=== PATIENT | male | born 1970 | race Caucasian/White ===

== ENCOUNTER → 2020-11-20 16:57 | Outpatient (CLI) | payer MEDICARE, MEDICAID, SELFPAY ==
--- NOTE | 2020-11-20 17:31 | CT_ITS ---
STUDY: RIGHT LOWER EXTREMITY CT SCAN REASON FOR EXAM: Male, 50 years old. Osteoarthritis. Presurgical planning. RADIATION DOSAGE (If Supplied By Facility): CTDIvol = ( 14.07 ) mGy, DLP = ( 1099.86 ) mGycm. Individualized dose optimization techniques were used for this CT.? TECHNIQUE: Axial multidetector CT scan of the right lower extremity. Coronal and sagittal reformatted images. COMPARISON: None. FINDINGS: Severe bilateral hip osteoarthropathy (coronal image 91 series 607) with lateralization of the femoral heads, extensive subcortical cyst formation/sclerosis, extensive osteophyte production and severe joint space narrowing. No acute fracture line. No acute dislocation. Chronic bilateral femoral head flattening. Mild pubic symphysis arthrosis. Mild bilateral knee osteoarthritis predominating medially. Prostate calcifications. Normal visualized bowel. Normal visualized urinary bladder. No acute muscle abnormality. Small fat-containing left inguinal hernia. Small bilateral hip joint effusions. CT/Extremity Lower without Contra IMPRESSION: Severe bilateral hip osteoarthritis Mild bilateral knee osteoarthritis Small hip joint effusions Electronically Signed: Noel Sanchez DO at 11:10 EDT Tel , Service support ,
--- NOTE | 2020-11-20 17:33 | CT_ITS ---
STUDY: CT SCAN LEFT REASON FOR EXAM: Male, 50 years old. [employer] [facility] RADIATION DOSAGE (If Supplied By Facility): CTDIvol = ( 14.07 ) mGy, DLP = ( 1099.86 ) mGycm. Individualized dose optimization techniques were used for this CT.? TECHNIQUE: Multiple axial tomographic images of the left hip joint were obtained without intravenous contrast administration. Coronal and sagittal reconstruction was obtained as well. COMPARISON: None. FINDINGS: Marked degree of osteoarthritis and joint space narrowing of the left hip joint with evidence of subchondral cysts in the femoral head as well as the acetabulum. Degenerative spur formation along the acetabulum. Degenerative changes of the symphysis pubis. CT/Extremity Lower without Contra IMPRESSION: Marked degree of osteoarthritis with joint space narrowing and subchondral geodes of the acetabulum and the femoral head with degenerative spur formation. Electronically Signed: Cosme Helm MD at 13:19 EDT , Service support ,
== END ==
PROVIDERS: PCP Family Medicine; Referring Provider Specialist; Visit Provider Specialist
DX: Z01.810 Encounter for preprocedural cardiovascular examination (principal); M16.6 Other bilateral secondary osteoarthritis of hip
CPT/HCPCS: 36415; 73700; 80048; 85025; 87081

== ENCOUNTER 2020-12-03 12:49 | Observation (INO) | payer MEDICARE, MEDICAID, SELFPAY ==
[2020-11-20 17:32] LABS: Absolute Lymphocyte Count 1.96 X10^3/uL (0.83-4.51); Absolute Neutrophil Count 5.2 X10^3/uL (2.0-7.7); Basophil# 0.05 X10^3/uL; Basophil% 0.6 % (0-1); Eosinophil# 0.13 X10^3/uL; Eosinophils% 1.6 % (0-5); Hematocrit 47.1 % (40-54); Hemoglobin 15.6 g/dL (13.0-16.5); Lymphocyte # 1.96 X10^3/ul (0.83-4.51); Lymphocyte % 24.6 % (19-41); Mean Corp Hgb Conc 33.1 g/dL (32-36); Mean Corpuscular Hgb 29.3 pg (27.0-32.0); Mean Corpuscular Volume 88.4 fL (80-94); Mean Platelet Vol. 9.4 fl (6.2-12.0); Monocyte# 0.57 X10^3/uL; Monocyte% 7.2 % (0-10); NRBC Flagged by Analyzer 0 % (0-5); Neutrophil # 5.23 X10^3/uL (2.7-7.7); Neutrophil % 65.7 % (47-70); Platelet Count 277 K/mm3 (150-450); RBC Distribution Width CV 12.7 % (11.6-14.6); Red Blood Count 5.33 M/mm3 (4.6-6.2)
[2020-11-20 17:58] LABS: Anion Gap 6 (5-15); BUN 18 mg/dL (7-18); BUN/Creat Ratio 16.1 RATIO (10-20); Calcium,Total 9.1 mg/dL (8.5-10.1); Chloride 105 mmol/L (98-107); Creatinine, Serum 1.12 mg/dL (0.70-1.30); EST Glomerular Filtration Rate 74 mL/min (>60); Est Glom Filt Rate - Afr Amer 89 mL/min (>60); Glucose 98 mg/dL (74-106); Potassium 3.8 mmol/L (3.5-5.1); Sodium Level 138 mmol/L (136-145)
--- NOTE | 2020-11-21 12:38 | PCM.HP.BLA ---
History and Physical History and Physical Patient Name: Han Rojo : 1970 From: CARLOS MEJÍA PA-C DATE OF SURGERY and SCHEDULED PROCEDURE: 1. Right posterior total hip arthroplasty: December 03, 2020 2. Left posterior total hip arthroplasty: December 17, 2020 HISTORY OF PRESENT ILLNESS: Preoperative history and physical exam was performed on November 20, 2020. This is a 50-year-old male who has been having ongoing pain in bilateral hips for nearly 10 years. Pain is progressively become worse over the past 1 year. Patient does report having hip issues as a child. He has medical history pertinent for Aperts Syndrome. Patient's pain can reach as high as an 8/10 with activities. Pain is intermittent. Pain is increased with going up and down stairs and walking. Patient has bilateral groin pain. Patient has had severe hip flexion contractures and walks in a significantly forward flexed position. Currently using a walker. He has difficulty with activities of daily living including housework and bathing/showering. Patient has attempted conservative measures including rest, ice, heat, elevation with minimal relief. Patient has had corticosteroid injections into the trochanteric bursa with minimal relief. He has also complained of bilateral knee pain. He has attempted oral medications including nonsteroidal anti-inflammatories with minimal relief. He has been through physical therapy and home exercises with minimal relief. Patient denies previous surgery on bilateral hips. He denies any recent chest pain, shortness of breath, fevers chills or recent infections. We are obtaining surgical clearance from the primary care physician Dr. Sommer. After failing conservative measures and discussing all treatment options with Dr. Brennon Salazar, the patient does wish to proceed with a staged total hip arthroplasty first beginning with the right hip in 2 weeks later the left hip. REVIEW OF SYSTEMS: ROS: Const: Denies anorexia, change in appetite, fever, difficulty sleeping and weight change. CV: Denies chest pain, heart murmur, irregular heartbeat and peripheral vascular disease. Resp: Denies asthma, cough, pneumonia, sleep apnea, shortness of breath, tuberculosis and wheezing. GI: Denies constipation, diarrhea, heartburn, nausea, rectal itching, bloody stools and vomiting. : Denies incontinence. Musculo: Reports pain, trouble walking and weakness. Skin: Denies Raynaud's, history of shingles and tattoo. Neuro: Denies ambulatory dysfunction, dizziness, numbness/tingling and tremor. Psych: Denies anxiety, depression, insomnia, mental illness and stress. Nilesh/Lymph: Denies anemia, bleeding/bruising tendency and past transfusion. Reviewed, no changes. PAST MEDICAL HISTORY: Advance Care Plan: No Advance Directives Effective Date: 09/26/2020 PMH: Medical Problems: Apert syndrome, Osteoarthritis Accidents: None Surgical Hx: Plastic Surgery To Face And Jaw - (age 21 Years) Anesthesia Complications: None Assistive Devices: Glasses Reviewed, no changes. SOCIAL HISTORY: SH: Marital: Single.Occupation: Disabled.Work Status: Disabled.Hand Dominance: Right-handed. Personal Habits: Cigarette Use: Never Smoked Cigarettes.Smokeless Tobacco: Never Used Smokeless Tobacco.E-Cigarette Use: Never used.Alcohol: Occasionally.Drug Use: Denies Use.Enjoy Exercising: Exercises 1-3 x/month. Reviewed, no changes. VITALS: Ht: 67 Wt: 211lb Wt k.710 BMI: 33.0 BP: 144/100 Pulse: 68 Resp: 20 T: 97.3 T: 36.3C ALLERGIES: No Known Drug Allergy MEDICATIONS: Meloxicam 15 mg 1 by mouth every day PRE-OP EXAM: General appearance:NORMAL Other: Eyes: Conjunctivae and lids: NORMAL Pupils: ERR Ears, Nose, Mouth, and Throat: NORMAL Other: Inspection of lips, teeth and gums: NORMAL Other: Neck: Examination of neck: no masses noted. Respiratory: Assessment of respiratory effort: NORMAL Other: Auscultation of lungs: clear to auscultation no wheezes, rhonchi or rales. Cardiovascular: Auscultation of heart: regular rate and rhythm, no murmurs, gallops or rubs. PHYSICAL EXAMINATION: On exam patient currently walks with severe limping gait with severe trunk flexion secondary to the hip flexion contractures. He has bilateral hip flexion contractures. He has obligatory external rotation with the flexion of hips. There is approximately 40 flexion contracture of bilateral hips. Sensation intact to light touch. Neurovascularly intact. IMAGING STUDIES: Previous x-rays of bilateral hips reveal dysplastic acetabulum with oblong shaped femoral heads. The left femoral head has large bony cyst as well as the right femoral head. There is severe loss of joint space with [id number] arthrosis stage for severe osteoarthritis bilaterally. IMPRESSION: 1. Severe right hip osteoarthritis with flexion contracture 2. Severe left hip osteoarthritis with flexion contracture 3. Apert's syndrome PLAN: Dr. Brennon Salazar did discuss and review with the patient all treatment options including surgical versus nonsurgical options. Patient does wish to proceed with the above-stated procedure. Potential risks, benefits, and complications of the procedure were discussed in detail including but not limited to , infection, nerve and blood vessel damage, persistent pain, numbness, tingling, paresthesias, blood clot, pulmonary embolism, and requirement for possible further surgery. The patient expressed full understanding and has no further questions for the doctor. Patient does agree to proceed with the above-stated procedure and has signed the surgery consent form. We discussed the current risks associated with COVID 19. This does include the risk of exposure while in the hospital. Patient was reassured local hospitals have low infection rates and are taking all necessary precautions to avoid exposure to patients. In addition, we discussed strategies that can be used to help limit exposure including those that limit the patient's time in the hospital. Also using strategies to limit the patient's need for continued inpatient services after being discharged from the hospital. Patient was notified that we will need to comply with any screening or testing the hospital wishes to perform or that surgery may be delayed for any positive results. This dictation was created using voice recognition software. Phonetic and/or grammatical errors may exist. ___ I have re-examined the patient. There are no clinical changes since date of exam. ___ See progress notes for changes. ___ Dictated on admission Date: Time: Signature:
[2020-11-21 16:22] LABS: Albumin, Serum 3.9 g/dL (3.2-5.0)
--- NOTE | 2020-11-27 13:03 | EKG12_ITS ---
Test Reason : PRE OP Blood Pressure : / mmHG Vent. Rate : 086 BPM Atrial Rate : 086 BPM P-R Int : 130 ms QRS Dur : 142 ms QT Int : 394 ms P-R-T Axes : -19 -68 -03 degrees QTc Int : 471 ms Normal sinus rhythm Right bundle branch block Left anterior fascicular block Bifascicular block Abnormal ECG Confirmed by NOLBERTO PADILLA, BREN ([id number]), editor publications PATRICE NAGEL ([id number]) on 12/01/2020 10:53:35 AM Referred By: Brennon Salazar Confirmed By:MAYCOL ARVIZU MD
[2020-12-03] VITALS (13 sets, daily range): BP systolic 106–153; BP diastolic 58–108; PULSE 60–78; RESP 16–18; TEMP 35.6–37.2; O2SAT 93–100; BMI 30.2
[2020-12-03 11:00] LABS: Bedside Glucose 97 mg/dL (70-110)
[2020-12-03] MEDS: Celecoxib 200 MG Capsule 400 MG PO (11:09)
[2020-12-03] MEDS: Acetaminophen 500 MG Tablet 1000 MG PO ×2 (11:10→22:02)
[2020-12-03] MEDS: Gabapentin 600 MG Tablet PO (11:10)
[2020-12-03] MEDS: Lactated Ringers 1,000 ML 999 ML IV ×2 (11:47→15:30)
--- NOTE | 2020-12-03 12:30 | HIP_PTH ---
PATIENT: DESTINI COREY LOC: MS2 U#:[id number] AGE/SX: 50/M ROOM: [facility] [place] RE12/03/[address]: Dr. Sugar Galdamez MD : 1970 BED: 1 DIS: 12/04/2020 SPEC #: [id number] RECD: 12/03/20 15:51 STATUS: MARY REQ #: [id number] DUNCAN: 12/03/20 12:[address]: Brennon Salazar DEPT: SURGICAL PATHOLOGY RECD BY: Agatha Sandhu ENTERED: 12/04/20 07:28 SP TYPE: TOTAL HIP OTHR DR: MD Dr. Noel Munoz DO Dr. Paul Nielsen, MD Dr. Steven Widmer, MD Tissues: Hip, NOS Procedures: Decalcification bone/plaque Surgery Specimen Level IV Comments: @ Ordering doctor for DEC edited from to @ by JOSSELINE at 12/04/20 1317 @ Ordering doctor for SUIV edited from to @ by JOSSELINE at 12/04/20 131 @ Submitting doctor edited from to @ by JOSSELINE at 12/04/20 1317 HEADER OPERATION: ERAS, total hip replacement robotic arm assist, posterior PRE-OP DIAGNOSIS: Severe right hip osteoarthritis with flexion contracture, Apert?s syndrome TISSUE SUBMITTED: Right femoral head MICROSCOPIC DIAGNOSIS Right femoral head, total hip replacement/resection: Femoral head with severe degenerative osteoarthritic changes. AVIVA:flavio 12/10/2020 MICROSCOPIC DESCRIPTION Slides are reviewed. GROSS DESCRIPTION Received is one container labeled with the patient's name and designated right femoral head. The specimen consists of a deformed femoral head measuring 7 x 7 x 4 cm. A portion of femoral neck is not seen. The soft tissue predominantly consists of bone reamings measuring in aggregate 7 x 7 x 2 cm. The articular surface displays prominent osteophyte formation, eburnation and bone erosion. Android Architect sections are submitted in two cassettes after decalcification as follows: 1 - bone reamings tissue, 2 - femoral head. / AVIAV:flavio 12/04/20 TC:5 CPT: 33133, 23781
[2020-12-03] MEDS: Lactated Ringers 1,000 ML 75 ML IV (12:37)
[2020-12-03] MEDS: Cefazolin 2 GM in 0.9% Normal Saline 100 ML IV (12:50)
--- NOTE | 2020-12-03 12:50 | RAD_ITS ---
STUDY: X-RAY - PELVIS AND RIGHT HIP REASON FOR EXAM: Male, 50 years old. Post Op -- AP both hips on single caprice/lateral of op hip PACU TECHNIQUE: 3 views of the pelvis and hip. COMPARISON: None. FINDINGS: Status post surgical resection of the right femoral head and neck. The proximal one third femoral prosthetic component is well placed within the intramedullary cavity as well as the acetabular cup. Both prosthetic components demonstrate good bony contact and alignment. Expected postoperative changes of the overlying soft tissues including gas and swelling. Surgical osbaldo are also present. Severe degenerative changes of the left hip noted. RAD/Hip Min 2 Views (Portable) IMPRESSION: Status post total right hip arthroplasty Electronically Signed: Bishop Bojorquez MD at 16:53 EDT , Service support ,
--- NOTE | 2020-12-03 14:58 | OP.PCM_ITS ---
Report of Operation Date of Procedure: 12/03/20 Pre-Operative Diagnosis: Right hip dysplasia Secondary osteoarthritis right hip Post-Operative Diagnosis: Right hip dysplasia Secondary osteoarthritis right hip Surgery/Procedure Performed:: Right posterior shoulder replacement, robotic assisted Description of Surgical Findings:: Stable hip. Based on robotic testing hip was lengthened 3 mm. Surgeon: Brennon Salazar mapping analyst: Mika Astudillo Type of Anesthesia: Spinal Anesthesiologist: Gopal Rosenberg Special Medications: 2 g Ancef Specimen's removed: Bony cuts Estimated Blood Loss (mL): 400 Fluids Replaced: 2000 mL crystalloid Description of Procedure: Findings: Adequate reduction with stability of the hip and equal leg lengths measured intraoperatively. Components used: 1. Anibal Accolade 2 size 4 stem, 127 neck angle 2. [place] tritanium 54 mm acetabular shell 1 screw 3. [place] X3 polyethylene liner, alpha code E 4. Anibal Biolox delta 36 mm, 5 mm neck femoral head Brief history operative indications: 50-year-old male with history of Apert syndrome and bilateral hip dysplasia presented with severe hip flexion contractures, dysplasia and secondary osteoarthritis. Risks and benefits were discussed with the patient which included but were not limited to blood loss, DVTs, PEs, infection, neurovascular damage, and dislocation. In light of all this patient did agree to proceed with a total hip arthroplasty. Procedure: On the date of procedure the patient's R hip was marked in the preoperative area. Patient was then taken back to the operating room where anesthesia assumed control of the C-spine and airway and administered anesthetic. Patient was transferred to the operating table and placed in the lateral decubitus position with the affected hip up. The patient was secured in the bed with the lateral positioners and leg lengths were checked. The R lower extremity was then prepped out in a sterile fashion using chlorhexidine while the surgeon scrubbed. Upon reentering the room the R lower extremity was draped in the standard orthopedic fashion and the incision was marked. A timeout was called and everyone agreed upon the side, the site, the procedure be performed, antibiotics given, and patient's identity. At this time incision was made through skin, subcutaneous tissue, and fat down to fascia. The fascia was then incised and a Charley retractor was placed. The soft tissue was then cleared from the posterior external rotators and the piriformis was identified. Piriformis was taken down and tagged. The remainder of the short external rotators were taken down. Capsulotomy was made and the posterior capsule was tagged. The retractors were then placed inside the capsule. The femoral neck was identified and a cleanup cut was made. At this time a power corkscrew was used to remove the femoral head. At this time all bony debris was removed from the acetabulum. Attention was then turned to the femur where the proximal femur was appropriately exposed using a carlton retractor. The stocking and box shop supervisor was used to remove the lateral bone. Canal finder was used to verify the canal. The proximal femoral femur was then sequentially broached to a size 4 broach which had an appropriate fit. The broach was left in place. Our attention was then directed to the acetabulum and the anterior retractor was placed and a Gelpi was used to retract the posterior capsule superiorly. All soft tissue debris was removed from the pulvinar and labrum of the joint. The acetabulum was then registered with robotics after placing 2 pelvic iliac crest pins. The robotic was then brought in and the acetabulum was then reamed to 54 millimeters. At this time a and 54 mm [place] TRIDENT 2 cup was opened and impacted into place. Once it was securely fastened our attention was again turned towards the femur and the high offset neck was chosen and a 36 mm head with 5 mm offset was trialed. The hip was properly reduced using traction and external rotation. Stability was checked with the appropriate amount of shuck, no impingement with external rotation, and stable at 90? flexion and 90? internal rotation. Leg lengths were checked using the [employer] robotic system and the right leg was lengthened 3 mm compared to preoperatively with 8 mm of additional offset. Once the hip was determined to be stable the trial components were dislocated and 1 bone screw was placed in the safe zone of the acetabular component. Once it was securely fastened down the polyethylene liner was placed and security was verified. The proximal femur was again exposed and the components were removed from the wound. The final components were verified and opened. The wound was copiously irrigated out with normal saline. The acetabulum was checked for any residual debris. The final components were placed and impacted. Traction and external rotation were again used to reduce the hip. After adequate reduction the hip remained stable with appropriate leg lengths. The wound was then copiously irrigated with normal saline once more, and hemostasis was obtained. The posterior capsule and piriformis not repairable due to the change in the patient's hip mechanics from his preoperative contractures. Closure was then done using #1 Vicryl to close the fascia. A 2-0 Vicryl interrupted sutures were used to close the subcutaneous skin. Skin osbaldo were used for final skin closure. A sterile dressing was placed. Patient was awakened by anesthesia and transferred to the [place]. Patient was then transferred to the PACU for recovery. Postoperative plan: Patient will get 24 hours postop antibiotics. Patient will get in-house physical therapy and will be weight-bear as tolerated. Patient will follow up in office in 2 weeks for a wound check and x-rays. Complications No intraoperative complications Admit VTE Documentation VTE Present on Admission: No VTE Mechan Device Prophylaxis: SCD's and Thigh High KERWIN Hose VTE Pharm Prophylaxis ordered?: Yes
[2020-12-03] MEDS: Lactated Ringers 1,000 ML 125 ML IV (17:31)
--- NOTE | 2020-12-03 17:46 | PN.HOSP_ITS ---
Subjective Subjective -year-old male with Alport syndrome just underwent right hip replacement, robotic assisted. Denies any complaints at this time. Objective Data Objective Data Vital Signs: Vital Signs Temp Pulse Resp BP Pulse Ox 35.6 C L 69 16 106/58 L 100 12/03/20 17:15 12/03/20 17:15 12/03/20 17:15 12/03/20 17:15 12/03/20 17:15 Oxygen Flow Rate (L/min) 6 Oxygen Delivery Method Room Air Weight: 98.1 kg Body Mass Index (BMI) 30.2 Intake & Output: Intake and Output for Last 24 Hours 12/01/20 12/02/20 12/03/20 23:59 23:59 23:59 Intake Total 3436 / 3436 Balance 3436 / 3436 Lab / Micro Data Result Diagrams: 11/20/20 17:13 11/20/20 17:13 Labs: Laboratory Results - last 24 hr 12/03/20 10:40: POC Glucose 97 Micro: Microbiology 11/20/20 17:13 Nasal Secretion Nasal Screen MRSA/MSSA - Final Radiography Diagnostic Testing: Radiology Impression Hip X-Ray 12/03/20 12:50 IMPRESSION: Status post total right hip arthroplasty Electronically Signed: Bishop Bojorquez MD at 16:53 EDT , Service support , Physical Exam Const alert and oriented x3 Constitutional Narrative: Pleasant. Afebrile. HEENT HEENT Narrative: Frontal bossing. Wide set eyes. Resp normal respiratory effort and no retractions Cardio regular rate, regular rhythm, S1 normal heart sound and S2 normal heart sound GI normal to inspection, nondistended, normoactive bowel sounds, soft to palpation, non-tender and non-distended Extremity Extremity Narrative: Shortened digits on his hands. Neuro Sensorium / Orientation: awake and alert Psych affect normal Assessment & Plan Assessment/Plan (1) Alport syndrome: PLAN: 1. Alport syndrome * History * Recent lab work shows normal kidney function * Patient has extensive other abnormalities unclear if this is related with his Alport syndrome but appears to be stable. 2. Status post right hip replacement * Management per orthopedics * Patient states that he is can have his left side done in roughly 2 weeks 3. VTE prophylaxis * Per orthopedics. Patient on aspirin 81 twice daily. Patient currently medically stable at this time. No active medical issues to address. The hospital service will follow peripherally at this point. If medical issues do arise please do not hesitate to contact the hospitalist service. Charges/Coding Visit Charges Inpatient E&M: 28280 Subs Hosp L2
[2020-12-03] MEDS: Scopolamine 1mg/72hr Patch 1 PATCH TD (20:42)
[2020-12-03] MEDS: Cefazolin 1 GM/50 ML BAG IV (20:46)
[2020-12-03] MEDS: Aspirin 81 MG TAB.CHEW PO (22:02)
[2020-12-03] MEDS: Senna/Docusate Sodium 1 Tablet 2 TABLET PO (22:02)
--- NOTE | 2020-12-03 23:57 | PCS.PANDOC ---
PANDEMIC DOCUMENTATION INITIATED: Date: 12/03/2020 Time: 190
[2020-12-04 02:00] VITALS: BP 100/63; PULSE 62; RESP 18; TEMP 36.6; O2SAT 96
[2020-12-04] MEDS: Cefazolin 1 GM/50 ML BAG IV (05:36)
[2020-12-04 05:39] VITALS: BP 117/80; PULSE 61; RESP 18; TEMP 36.6; O2SAT 92
[2020-12-04] MEDS: Acetaminophen 500 MG Tablet 1000 MG PO ×2 (05:41→13:32)
[2020-12-04] MEDS: oxyCODONE 5 MG Tablet PO (05:41)
[2020-12-04 06:06] LABS: Hematocrit 37.8 % (40-54); Hemoglobin 12.9 g/dL (13.0-16.5); Mean Corp Hgb Conc 34.1 g/dL (32-36); Mean Corpuscular Hgb 29.5 pg (27.0-32.0); Mean Corpuscular Volume 86.3 fL (80-94); Mean Platelet Vol. 9.5 fl (6.2-12.0); Platelet Count 284 K/mm3 (150-450); RBC Distribution Width CV 12.6 % (11.6-14.6); RBC Distribution Width SD 38.9 fl (35.1-43.9); Red Blood Count 4.38 M/mm3 (4.6-6.2); White Blood Count 10.9 K/mm3 (4.4-11.0)
[2020-12-04 06:21] LABS: Anion Gap 8 (5-15); BUN 13 mg/dL (7-18); BUN/Creat Ratio 13.6 RATIO (10-20); Calcium,Total 9.1 mg/dL (8.5-10.1); Chloride 105 mmol/L (98-107); Creatinine, Serum 0.96 mg/dL (0.70-1.30); EST Glomerular Filtration Rate 89 mL/min (>60); Est Glom Filt Rate - Afr Amer 107 mL/min (>60); Estimated Creatinine Clearance 98.05 ml/min; Glucose 122 mg/dL (74-106); Potassium 4.7 mmol/L (3.5-5.1); Sodium Level 139 mmol/L (136-145)
--- NOTE | 2020-12-04 07:55 | PCM.PN.HOSP ---
Objective Data Objective Data Vital Signs: Vital Signs Temp Pulse Resp BP Pulse Ox 98 F 61 18 117/80 92 12/04/20 05:39 12/04/20 05:39 12/04/20 05:39 12/04/20 05:39 12/04/20 05:39 Oxygen Flow Rate (L/min) 6 Oxygen Delivery Method Room Air Weight: 98.1 kg Body Mass Index (BMI) 30.2 Intake & Output: Intake and Output for Last 24 Hours 12/02/20 12/03/20 12/04/20 23:59 23:59 23:59 Intake Total 4171.42 / 4171.42 168.75 / 168.75 Output Total 1750 / 1750 300 / 300 Balance 2421.42 / 2421.42 -131.25 / -131.25 Lab / Micro Data Result Diagrams: 12/04/20 05:57 12/04/20 05:57 Labs: Laboratory Results - last 24 hr 12/03/20 10:40: POC Glucose 97 12/04/20 05:57: WBC 10.9, RBC 4.38 L, Hgb 12.9 L, Hct 37.8 L, MCV 86.3, MCH 29.5, MCHC 34.1, RDW Std Deviation 38.9, RDW Coeff of Airam 12.6, Plt Count 284, MPV 9.5 12/04/20 05:57: Sodium 139, Potassium 4.7, Chloride 105, Carbon Dioxide 26.0, Anion Gap 8, BUN 13, Creatinine 0.96, Estim Creat Clear Calc 98.05, Est GFR (MDRD) Af Amer 107, Est GFR (MDRD) Non-Af 89, BUN/Creatinine Ratio 13.6, Glucose 122 H, Calcium 9.1 Micro: Microbiology 11/20/20 17:13 Nasal Secretion Nasal Screen MRSA/MSSA - Final Radiography Diagnostic Testing: Radiology Impression Hip X-Ray 12/03/20 12:50 IMPRESSION: Status post total right hip arthroplasty Electronically Signed: Bishop Bojorquez MD at 16:53 EDT , Service support ,
--- NOTE | 2020-12-04 08:28 | PCM.PN.HOSP ---
Subjective Subjective Follow-up on postop management for right hip replacement: Patient was seen and examined. His pain is controlled. No acute events overnight. Objective Data Objective Data Vital Signs: Vital Signs Temp Pulse Resp BP Pulse Ox 98 F 61 18 117/80 92 12/04/20 05:39 12/04/20 05:39 12/04/20 05:39 12/04/20 05:39 12/04/20 05:39 Oxygen Flow Rate (L/min) 6 Oxygen Delivery Method Room Air Weight: 98.1 kg Body Mass Index (BMI) 30.2 Intake & Output: Intake and Output for Last 24 Hours 12/02/20 12/03/20 12/04/20 23:59 23:59 23:59 Intake Total 4171.42 / 4171.42 168.75 / 168.75 Output Total 1750 / 1750 300 / 300 Balance 2421.42 / 2421.42 -131.25 / -131.25 Lab / Micro Data Result Diagrams: 12/04/20 05:57 12/04/20 05:57 Labs: Laboratory Results - last 24 hr 12/03/20 10:40: POC Glucose 97 12/04/20 05:57: WBC 10.9, RBC 4.38 L, Hgb 12.9 L, Hct 37.8 L, MCV 86.3, MCH 29.5, MCHC 34.1, RDW Std Deviation 38.9, RDW Coeff of Airam 12.6, Plt Count 284, MPV 9.5 12/04/20 05:57: Sodium 139, Potassium 4.7, Chloride 105, Carbon Dioxide 26.0, Anion Gap 8, BUN 13, Creatinine 0.96, Estim Creat Clear Calc 98.05, Est GFR (MDRD) Af Amer 107, Est GFR (MDRD) Non-Af 89, BUN/Creatinine Ratio 13.6, Glucose 122 H, Calcium 9.1 Micro: Microbiology 11/20/20 17:13 Nasal Secretion Nasal Screen MRSA/MSSA - Final Radiography Diagnostic Testing: Radiology Impression Hip X-Ray 12/03/20 12:50 IMPRESSION: Status post total right hip arthroplasty Electronically Signed: Bishop Bojorquez MD at 16:53 EDT , Service support , Physical Exam Narrative Physical exam: General: Alert, Oriented x3, Cooperative, No apparent distress HEENT: Atraumatic, craniosynostosis present Oral: Moist Mucosa Neck: Supple Lungs: Clear to auscultation Cardiovascular: HS I+II, regular, no murmurs Abdomen: Bowel Sounds Present, Soft, Non Tender Extremities: No edema, syndactyly of the fingers, dressing over the right hip with cooling mat in place Assessment & Plan Assessment/Plan (1) Status post right hip replacement: (2) Apert's syndrome: PLAN: 1. POD#1 status post robotic assisted right hip replacement for right hip dysplasia His pain is controlled with scheduled Tylenol, meloxicam Continue per orthopedic recommendations for wound care and PT and OT 2. Apert's syndrome craniosynostosis and syndactyly, Not Alport syndrome(corrected in problem list) Patient appears stable 3. DVT prophylaxis per orthopedic surgery?aspirin twice daily Patient is medically stable for discharge from hospital medicine perspective. Will sign off, please do not hesitate to call us back if needed. Charges/Coding Visit Charges Inpatient E&M: 24238 Subs Hosp L2
--- NOTE | 2020-12-04 09:05 | CASEMGMT ---
Addendum entered by Zayra Delarosa 12/04/20 11:25: RN BHAVIK updated this worker that pt is agreeable to [facility]. SADA placed a call to Aleja with [facility] and updated her. Pt to discharge to [facility] today. Plan: [facility] today Original Note: Social Woke Note SW received call from Aleja with [facility] stating she received referral for pt for [facility]. Aleja states [facility] is able to accept pt. SADA updated RICHARD GUTIERRES who will speak with pt regarding discharge plans. Zayra Delarosa DENTAL MANAGER, IT ARCHITECTURE ANALYST
[2020-12-04] MEDS: Famotidine 20 MG Tablet PO (09:08)
[2020-12-04] MEDS: Aspirin 81 MG TAB.CHEW PO (09:08)
[2020-12-04] MEDS: Senna/Docusate Sodium 1 Tablet 2 TABLET PO (09:08)
[2020-12-04] MEDS: Ensure Surgery 237 ML LIQUID PO ×2 (09:09→13:35)
--- NOTE | 2020-12-04 09:25 | PN.ORTHO_ITS ---
Subjective Subjective The patient was sitting in bedside chair upon examination. Patient denies any chest pain, shortness of breath, dizziness, lightheadedness, nausea or vomiting, or calf pain. Pain is controlled on medications. No adverse overnight events. Overall patient is doing very well. He was able to ambulate from the bed to the chair in which she states he had no increase in pain. Hip feels stiff. Patient does live home alone. Plan is for patient to go to rehab at [facility]. Plan also to proceed with left total hip arthroplasty in 2 weeks secondary to his hip flexion contracture. Objective Data Objective Data Vital Signs: Vital Signs Temp Pulse Resp BP Pulse Ox 98 F 61 18 117/80 92 12/04/20 05:39 12/04/20 05:39 12/04/20 05:39 12/04/20 05:39 12/04/20 05:39 Oxygen Flow Rate (L/min) 6 Oxygen Delivery Method Room Air Weight: 98.1 kg Body Mass Index (BMI) 30.2 Intake & Output: Intake and Output for Last 24 Hours 12/02/20 12/03/20 12/04/20 23:59 23:59 23:59 Intake Total 4171.42 / 4171.42 168.75 / 168.75 Output Total 1750 / 1750 300 / 300 Balance 2421.42 / 2421.42 -131.25 / -131.25 Lab / Micro Data Result Diagrams: 12/04/20 05:57 12/04/20 05:57 Labs: Laboratory Results - last 24 hr 12/03/20 10:40: POC Glucose 97 12/04/20 05:57: WBC 10.9, RBC 4.38 L, Hgb 12.9 L, Hct 37.8 L, MCV 86.3, MCH 29.5, MCHC 34.1, RDW Std Deviation 38.9, RDW Coeff of Airam 12.6, Plt Count 284, MPV 9.5 12/04/20 05:57: Sodium 139, Potassium 4.7, Chloride 105, Carbon Dioxide 26.0, Anion Gap 8, BUN 13, Creatinine 0.96, Estim Creat Clear Calc 98.05, Est GFR (MDRD) Af Amer 107, Est GFR (MDRD) Non-Af 89, BUN/Creatinine Ratio 13.6, Glucose 122 H, Calcium 9.1 Micro: Microbiology 11/20/20 17:13 Nasal Secretion Nasal Screen MRSA/MSSA - Final Radiography Diagnostic Testing: Radiology Impression Hip X-Ray 12/03/20 12:50 IMPRESSION: Status post total right hip arthroplasty Electronically Signed: Bishop Bojorquez MD at 16:53 EDT , Service support , Physical Exam Narrative Vital signs stable and afebrile. Patient is able to plantarflex and dorsiflex actively. Sensation is intact to light touch to saphenous, sural, superficial and deep peroneal, and tibial distribution. Dressing is clean dry and intact. Negative Homans bilaterally, negative signs and symptoms of DVT. Const alert, oriented x3 and no apparent distress Assessment & Plan Assessment/Plan (1) Status post right hip replacement: (2) Apert's syndrome: PLAN: 1. S/P right posterior total hip arthroplasty POD #1 2. Continue Pain Medications: Tylenol, meloxicam, oxycodone as needed 3. DVT Prophylaxis: Take 81 mg aspirin twice daily for 4 weeks postoperatively for DVT prophylaxis 4. PT/OT: Weightbearing as tolerated. Follow posterior hip dislocation precautions 5. H & H: 12.9/37.8, asymptomatic. Postoperative anemia secondary to acute blood loss from surgery without any intra operative complications. 6. Continue postoperative medical management per medicine: Case was discussed in detail with the hospitalist and in agreements for patient to be discharged to rehab facility for continued rehabilitation for his postoperative right total hip arthroplasty. iron worker foreman involved with appropriate placement. 7. Encouraged Incentive Spirometry 8. Disposition: Plan will be for possible discharge today to the rehabilitation floor at [facility]. Patient will continue to utilize walker and weight-bear as tolerated but follow posterior hip dislocation precautions. Continue medications as prescribed above. Patient will follow-up per postoperative instructions. Plan is for patient to proceed with a left posterior total hip arthroplasty in 2 weeks due to his flexion contractures. As long as patient is medically stable patient plan will be for discharge this afternoon as long as the rehab facility is able to take patient. iron worker foreman/case management is involved. I have reviewed the [place] Automated Rx Reporting System (OARRS) report for this patient for refill pattern and other prescriber involvement as part of the appropriate surveillance for the provision of acute and chronic controlled medications. The report was requested and reviewed on the date of this entry and was considered in the prescribing process.
--- NOTE | 2020-12-04 09:31 | PCM.DC ---
Discharge Instructions Diet Discharge Diet: No restrictions Activity Discharge Activity: May Not Drive (while taking narcotic pain medications.) May shower in (days): 1 (only if incision is dry and without drainage. Do NOT soak/submerge in tub/pool/shaffer/stream/hot tub.)) Ice area for (Minutes): 20 (Every 1-2 hours while awake[address] barrier between ice and skin.) Weight Bearing Status: Weight bearing as tolerated Keep extremity elevated above heart level: Operative Extremity Additional Activity Instructions:: Continue with postoperative posterior approach dislocation precautions for 3 months postoperatively Dressing / Incision Call your doctor if your incision/area has: Continuous Slow Oozing, Sudden Increased Bleeding, Increased Pain/ Swelling, Increased Redness and Foul Smelling Discharge Call your doctor if you observe: Fever of 101 or Higher, Shortness of breath, Chest pain, Calf discomfort and Uncontrolled pain Remove Dressing in: 4 days (Okay to remove dressing on 12/08/2020) Additional Dressing/Incision Instructions:: Follow [facility] Post-op Instructions. Once postoperative dressing has been removed, only use gentle soap and water over the incision. Do not use any ointments, Neosporin, salves, alcohol pads over the incision for 6 weeks postoperatively. Do not submerge underwater for 6 weeks postoperatively. Continue with KERWIN hose/elastic stockings for 2 weeks postoperatively. May remove at nighttime but needs to be placed back on the leg during the day. Do NOT use alcohol with narcotic pain medication. Do NOT make important decisions while taking narcotic medication. If you have problems with taking your medication (rash, itching, nausea, etc.) call the office at once. Follow Up Care Test Results: Test results from this visit will be discussed in further detail at your follow-up appointment, if applicable. Discharge Plan Admission Admit Date/Time: 12/03/20 12:49 Attending Provider: Sugar Galdamez Primary Care Provider: Last Sommer Consulting Providers: Noel Bonner Discharge Orders/Prescriptions Prescriptions: New acetaminophen 500 mg Tablet 1,000 mg PO TID 14 Days Qty: 84 RF: 0 aspirin 81 mg Tablet,Chewable 81 mg PO BIDCM 30 Days Qty: 60 RF: 0 Ensure Surgery 0.08-1.4 gram-kcal/mL Liquid 237 ml PO TIDCM Qty: 0 RF: 0 meloxicam 7.5 mg Tablet 7.5 mg PO BID Qty: 0 RF: 0 famotidine 20 mg Tablet 20 mg PO DAILY 30 Days Qty: 30 RF: 0 oxycodone 5 mg Tablet 5 - 10 mg PO Q4H PRN PRN (Reason: Pain Score 4-10) 4 Days Qty: 36 RF: 0 sennosides-docusate sodium [Stool Softener-Stimulant Laxat] 8.6-50 mg Tablet 2 tab PO BID 2 Days Qty: 8 RF: 0 Discontinued meloxicam 15 mg Tablet 15 mg PO DAILY RF: 0 Glucosamine Chondroitin 550-30-1 mg Capsule 1 cap PO TID RF: 0 Referrals / Follow Up: Last Sommer MD [Primary Care Provider] - Mika Astudillo PA-C [[facility]YSICIAN [employer]] - 12/15/20 2:30 pm Disposition Disposition (needs filled in before D/C Order can be placed): Inpatient Rehab Unit/Facility
[2020-12-04 09:40] VITALS: BP 117/75; PULSE 62; RESP 16; TEMP 36.4; O2SAT 97
--- NOTE | 2020-12-04 11:00 | CASEMGMT ---
RICHARD GUTIERRES Face to Face with patient for initial transition planning/care coordination assessment. RN CM introduced self and role at [facility]. Patient sitting in chair, alert and oriented. Patient willing to participate in assessment and is able to answer all questions appropriately. Care providers, pharmacy, and demographics verified. Patient wishes to discharge to the rehab unit for additional therapy. Patient was acceptable by rehab unit per SW. RN CM updated Ortho PA regarding discharge plan. SW updated that patient is agreeable to go to rehab unit. Patient states he has no further needs or concerns at this time. CM to follow for discharge planning needs that may arise. PCP: Ros Specialists: turner Salazar Preferred Pharmacy: [facility] Insurance: [employer] Prescription Benefit: yes Living Will/HPOA:none LNOK: mother, sister Living Arrangements: Patient lives alone on a ground floor apartment with no steps to enter. Patient states he was independent at home prior to surgery. Transportation: mother or sister DME/HHC: Patient states he has walker, shower chair, and grab bars at home. Patient denies previous HHC or SNF. Disposition Plan: Patient to discharge to [facility] rehab unit Zayra WOOTEN, RN, CM
[2020-12-04 14:25] VITALS: BP 117/73; PULSE 75; RESP 15; TEMP 36.8; O2SAT 94
[2020-12-04 14:45] VITALS: BP 117/73; PULSE 76; RESP 18; TEMP 36.8; O2SAT 94
== END 2020-12-04 14:50 ==
LOC: MS2 22:01
PROVIDERS: Anesthesiology; Admitting Provider Specialist; PCP Family Medicine; Referring Provider Specialist; Visit Provider Internal Medicine
PROC: 8E0Y0CZ Robotic Assisted Procedure of Lower Extremity, Open Approach (ICD-10-PCS; CPT 27130; principal; 2020-12-03 12:00)
DX: Q65.89 Other specified congenital deformities of hip (principal); M16.7 Other unilateral secondary osteoarthritis of hip; Q87.0 Congenital malformation syndromes predominantly affecting facial appearance; I45.2 Bifascicular block; R94.31 Abnormal electrocardiogram [ECG] [EKG]; Z79.899 Other long term (current) drug therapy; Q87.81 Alport syndrome
CPT/HCPCS: 01214; 27130; S2900; 36415; 73502; 80048; 82040; 82962; 83735; 85025; 85027; 87081; 88305; 88311; 93005; 97110; 97162; 97166; 97530; 97535; 99251; C1713; C1776; J7120; G0463; J2405

== ENCOUNTER 2020-12-04 15:25 | Inpatient (IN) | payer MEDICARE, MEDICAID, SELFPAY ==
[2020-12-04 16:09] VITALS: BP 119/75; PULSE 72; RESP 18; TEMP 36.7; O2SAT 92
[2020-12-04 16:24] VITALS: BMI 30.8
[2020-12-04] MEDS: oxyCODONE 5 MG Tablet PO (18:14)
--- NOTE | 2020-12-04 19:00 | NURSING ---
Patient alert and oriented, attempted to call mother to tell her about team and no answer and mailbox for her voicemail full. Patient aware to tell his mother about team. Thigh high teds digging into upper thighs and left red indents. Will try knee high teds.
[2020-12-04 19:15] VITALS: BP 113/82; PULSE 70; RESP 16; TEMP 36.7; O2SAT 99
[2020-12-04] MEDS: Aspirin 81 MG TAB.CHEW PO (20:17)
[2020-12-04] MEDS: Senna/Docusate Sodium 1 Tablet 2 TABLET PO (20:18)
[2020-12-04] MEDS: Meloxicam 7.5 MG Tablet PO (20:18)
[2020-12-04] MEDS: Acetaminophen 500 MG Tablet 1000 MG PO (22:32)
[2020-12-05] MEDS: Acetaminophen 500 MG Tablet 1000 MG PO ×3 (05:55→22:21)
[2020-12-05 07:10] VITALS: BP 134/70; PULSE 70; RESP 12; TEMP 36.7; O2SAT 94
[2020-12-05 07:35] VITALS: O2SAT 98
[2020-12-05] MEDS: Famotidine 20 MG Tablet PO (09:07)
[2020-12-05] MEDS: Meloxicam 7.5 MG Tablet PO ×2 (09:07→22:20)
[2020-12-05] MEDS: Aspirin 81 MG TAB.CHEW PO ×2 (09:07→17:41)
[2020-12-05] MEDS: oxyCODONE 5 MG Tablet PO ×2 (09:11→15:12)
[2020-12-05] MEDS: Ensure Surgery 237 ML LIQUID PO (09:11)
--- NOTE | 2020-12-05 09:55 | HP.PCM_ITS ---
HPI - General General Date of Admission: 12/04/20 HPI Narrative DESTINI COREY, is a 50 YO M with a PMH of OA, hip dysplasia, Apert's S., obesity and elective R THR on 12/03/[address] Salazar. He is scheduled for a L THR on 12/17/20. He was discharged to the acute rehab unit at [facility] on 12/04/20 and will have 3 hours of therapy daily to restore function at or better than prior to the hip replacement. Labs on 12/04/2020 showed a normal white blood cell count, hemoglobin of 12.9 (down from 15.6 on 11/20/2020) and a normal platelet count. BMP was within normal limits. Creatinine was 0.96 and the BUN was 13. [facility] Medical History (Updated 12/08/20 @ 11:[address] Camila Worrell DO) Anxiety Back pain Bifascicular block H/O corrected congenital abnormality of face Heart abnormality Hip dysplasia Marijuana use Non-smoker Osteoarthritis Home Medications acetaminophen 1,000 mg PO TID 12/04/20 [History Last Taken Unknown] aspirin 81 mg PO BIDCM 12/04/20 [History Last Taken Unknown] famotidine 20 mg PO DAILY 12/04/20 [History Last Taken Unknown] meloxicam 7.5 mg PO BID 12/04/20 [History Last Taken Unknown] nut.tx.comp. immune systm,reg [Ensure Surgery] 237 ml PO TIDCM 12/04/20 [History Last Taken Unknown] oxycodone 5 - 10 mg PO Q4H PRN PRN 4 Days #36 tab 12/04/20 [Rx Last Taken Unknown] sennosides-docusate sodium [Stool Softener-Stimulant Laxat] 2 tab PO BID [History Last Taken Unknown] Allergy/AdvReac Type Severity Reaction Status Date / Time No Known Allergies Allergy Verified 12/03/20 10:47 Surgical History (Updated 12/05/20 @ 10:[address] Camila Worrell DO) H/O plastic surgery Hx of foot surgery Hx of hand surgery Social History (Updated 12/06/20 @ 13:[address] Camila Worrell DO) adopted: No household members: none number of children: 0 Smoking Status: Never smoker alcohol intake: never substance use type: does not use ROS Constitutional Constitutional: Denies anorexia, change in weight, chills, fatigue, fever(s), night sweats or weakness Eyes Eyes: Denies change in vision, eye pain or loss of vision ENT HEENT: Denies abnormal hearing, dysphagia, headache(s), hearing loss, nasal congestion or sore throat Cardiovascular Cardiovascular: Denies chest pain, dyspnea on exertion, edema, lightheadedness, orthopnea, palpitations, paroxysmal nocturnal dyspnea or syncope Respiratory/Chest Respiratory/Chest: Denies cough, dyspnea, shortness of breath at rest, shortness of breath with exertion or wheezing Gastrointestinal Gastrointestinal: Denies abdominal pain, constipation, diarrhea, dyspepsia, hematemesis, hematochezia, nausea or vomiting Genitourinary Genitourinary: Denies dysuria, hematuria, nocturia, urinary frequency, urinary hesitancy, urinary incontinence or urinary urgency Musculoskeletal Musculoskeletal: Reports back pain, deformity, difficulty walking, joint pain, joint stiffness and limited range of motion; Denies joint swelling or neck pain Neurologic Neurologic: Denies confusion, disequilibrium, dizziness, focal weakness, headache(s), paresthesias, seizures or tremor(s) Psychiatric Psychiatric: Denies anxiety, depression, homicidal ideation or suicidal ideation Endocrine Endocrinology: Denies change in body appearance, polydipsia or polyuria Hematologic/Lymphatic Hematologic/Lymphatic: Denies easy bleeding, easy bruising or lymphadenopathy Allergic/Immunologic Allergic/Immunologic: Denies rhinitis, eczemia or asthma Vital Signs Vital Signs Vital Signs: 12/04/20 16:09 12/04/20 19:15 12/04/20 22:00 Temperature 98.0 F 98.1 F Temperature Source Oral Oral Pulse Rate 72 70 Respiratory Rate 18 16 Respiratory Effort Normal Non-Labored Respiratory Depth Normal Respiratory Pattern Normal Blood Pressure 119/75 113/82 H Blood Pressure Mean 89 92 Blood Pressure Source Monitor Monitor Blood Pressure Position Semi-Fowlers Sitting Blood Pressure Location Left Arm Right Arm Pulse Ox 92 99 Oxygen Delivery Method Room Air Room Air Room Air 12/05/20 07:10 12/05/20 07:35 Temperature 98.1 F Temperature Source Oral Pulse Rate 70 Respiratory Rate 12 Respiratory Effort Respiratory Depth Respiratory Pattern Blood Pressure 134/70 H Blood Pressure Mean 91 Blood Pressure Source Monitor Blood Pressure Position Semi-Fowlers Blood Pressure Location Right Arm Pulse Ox 94 98 Oxygen Delivery Method Room Air Room Air Weight Weight: 221 lb 1.978 oz Body Mass Index (BMI) 30.8 Physical Exam Const alert, oriented x3 and no apparent distress Constitutional Narrative: Very pleasant and makes good eye contact. General Appearance: cooperative HEENT HEENT Narrative: He has a very elevated palate with cicatrix due to previous surgery. The eyes are wide set. There seems to be some exophthalmos. Eyes PERRL, conjunctivae normal and no scleral icterus Neck no carotid bruits General: trachea midline; Negative for lymphadenopathy Carotids: normal carotid upstroke Chest Chest Narrative: mild pectus excavatum Chest: symmetrical chest wall rise Resp normal respiratory effort, normal air movement, no retractions, no use of accessory muscles and clear to auscultation bilaterally Effort and Inspection: able to speak in complete sentences Cardio regular rate, regular rhythm, S1 normal heart sound, S2 normal heart sound, no murmurs, no rub and no gallops Cardio Narrative: no ectopy GI normal to inspection, nondistended, normoactive bowel sounds, soft to palpation and non-tender Extremity no calf tenderness Extremity Narrative: Trace pedal edema on the R. He has syndactyly of the fingers and the toes BL. Has had surgery on both feet in the past. Skin General Skin Exam: no breakdown Rashes: no rashes Psych mental status grossly normal, thought process normal, affect normal, speech normal, activity/motor behavior normal, denies hallucinations, denies homicidal ideation and denies suicidal ideation Appearance: appropriate and well kempt Attitude: calm and engaged Activity / Motor Behavior: appropriate eye contact Assessment & Plan Assessment/Plan (1) Physical debility: (2) Status post right hip replacement: (3) Osteoarthritis: (4) Acute blood loss anemia: (5) Apert's syndrome: PLAN: PLAN PT for gait stability OT for ADL's ST for evaluation Analgesics as needed Bowel protocol Fall precautions Assess for Anxiety/Depression GI prophylaxis not necessary at this time. He is asymptomatic and has no history of peptic ulcer disease. DVT prophylaxis with aspirin 81 mg p.o. twice daily per orthopedics Follow up with Dr. Salazar and his PCP following DC from [facility]. Elective left total hip arthroplasty is planned for December 17. If he is still in rehab at that time will discharge for surgery and accept back to rehab if he requires additional therapy prior to returning home Charges/Coding Visit Charges Inpatient E&M: 32522 Init Hosp L2
--- NOTE | 2020-12-05 10:45 | PCM.RU.PYE ---
Admission Information Primary Diagnosis:: Physical debility secondary to bilateral hip dysplasia and recent right total hip replacement on 12/03/[address] Salazar. Status Changes from Prescreening?: No changes Identified Actual Problem List:: Skin Intergrity, Pain, ALteration in Cmfrt, Alteration in Sleep, Mobility Impaired, Self Care Deficit and Alteration-Leisure Activ. Potential Problem List:: DVT, Bleeding, Infection, UTI, Aspiration, Falls, Skin Integrity and Depression Risk of Complications DVT: KERWIN Morales and - (ASA 81 mg BID ordered by orthopedics) Bleeding: Monitor Lab Values, Nursing to Teach Precautions for anti-coagulation therapy., Wound, if applicable, to be assessed every shift. and Stroke patients assessed for lethargy or change in status. Infection: Clinical Staff to Monitor for S/S of infection: and S/S of infection include fever, redness, warmth, etc. Urinary Tract Infection: Monitor for frequency, burning, discomfort, or incontinence. and Nursing will obtain urine sample for urinalysis and C&S when ordered. Aspiration: Clinical staff will monitor for coughing, drooling, congestion., Speech will evaluate swallowing and dsyphasia. and Nursing will monitor patient swallowing during meals. Falls: Patient will be evaluated for Fall Precautions and Patient will be placed on Fall Precautions as indicated per protocol. Skin Breakdown: Nursing will assess skin daily using assessment tool. and Nursing will place on Skin Breakdown Precautions as indicated. Pain: Clinical staff will assess patient's pain level per protocol., Medications will be given, if needed, and the pain level reassessed. and Other methods: Massage, distraction, decrease stimulus, etc. used PRN. Plan of Care Patient requires physician specializing in physical medicine and rehab oversight to provide close medical supervision of rehab issues including: Pain Management, Sleep Problems, Bowel and Bladder, Medical and co-morbidity Management, DVT prophylaxis, Rehabilitation Leadership and Coordination of treatment team Patient needs Physical Therapy: For a minimum of 1 hour and At least 5 out of 7 days Patient needs Physical Therapy to improve:: Mobility, Strengthening, Transfers, Stretching, ROM, Endurance, Stairs, Gait and Balance Patient needs Occupational Therapy: For a minimum of 1 hour and At least 5 out of 7 days Patient needs Occupational Therapy to improve ADL's incl.: Eating, Grooming, Bathing, Dressing, Toileting, Toilet transfers, Community Reintegration, Higher functioning activities, Household tasks, Adaptive Equipment, Splinting and Other activities as determined Patient requires 24/7 Rehabilitation Nursing for: Pain Issues, Identifying and preventing risk factors, Monitoring and reporting current medical conditions, Assisting with ambulation, transfer, and all ADL's, Teaching patients about disease process and medications, Family teaching, Providing safe environment, Bowel and Bladder Issues, Skin integrity and Medication Management Patient needs Lawn [employer] Service Spray Supervisor/ Case Management for: Discharge Planning, Arranging Home Equipment or Services and Family Interventions Patient needs Dietary and Nutrition Services for: Adequate Nutrition, Nutritional Supplements and Nutritional Education Goals Patient will remain: free from falls and or injury at time of discharge. Patient will perform bed mobility at: MOD I level of assist. Patient will complete transfers from bed to chair at: MOD I level of assist. Patient will ambulate: - (250 feet with a wheeled walker on various surfaces at mod I) Patient will propel wheelchair: - Patient will complete upper body dressing at: MOD I level of assist. Patient will complete lower body dressing at: MOD I level of assist. Patient will complete toileting at: MOD I level of assist. Patient will perform bathing at: MOD I level of assist. Patient will complete grooming at: MOD I level of assist. Patient will complete home management skills at: MOD I level of assist. Patient will achieve: - (1 curb step with wheeled walker at contact-guard assist) Patient will have pain level of: of 3 or less Patient's skin will: remain intact Patient will receive: adequate nutrition. Discharge Planning Pt Prognosis for Sig. Practical Improv. w/in Reasonable Time: Good Estimated Length of stay (days): 14 Anticipated D/C Destination: Home with Outpt Therapy Was Preadmission Assessment Accurate?: Yes
[2020-12-05 19:25] VITALS: BP 132/68; PULSE 75; RESP 18; TEMP 36.8; O2SAT 95
[2020-12-05 22:00] VITALS: PULSE 75; RESP 18; O2SAT 95
[2020-12-06] MEDS: Acetaminophen 500 MG Tablet 1000 MG PO ×3 (06:37→20:24)
[2020-12-06] MEDS: Senna/Docusate Sodium 1 Tablet 2 TABLET PO ×2 (08:28→20:24)
[2020-12-06] MEDS: Meloxicam 7.5 MG Tablet PO ×2 (08:28→20:24)
[2020-12-06] MEDS: oxyCODONE 5 MG Tablet PO (08:28)
[2020-12-06] MEDS: Famotidine 20 MG Tablet PO (08:28)
[2020-12-06] MEDS: Aspirin 81 MG TAB.CHEW PO ×2 (08:28→18:37)
[2020-12-06 09:49] VITALS: BP 136/86; PULSE 66; RESP 18; TEMP 36.5; O2SAT 93
[2020-12-06 20:20] VITALS: BP 151/75; PULSE 68; RESP 17; TEMP 36.5; O2SAT 97
--- NOTE | 2020-12-07 00:06 | NURSING ---
Reviewed and agree with BRAKE ASSEMBLER assessment.
[2020-12-07] MEDS: Acetaminophen 500 MG Tablet 1000 MG PO ×3 (06:09→20:23)
[2020-12-07 07:32] VITALS: BP 144/80; PULSE 69; RESP 16; TEMP 36.6; O2SAT 94
[2020-12-07] MEDS: Meloxicam 7.5 MG Tablet PO ×2 (08:58→20:23)
[2020-12-07] MEDS: Aspirin 81 MG TAB.CHEW PO ×2 (08:58→17:35)
[2020-12-07] MEDS: oxyCODONE 5 MG Tablet PO (08:58)
[2020-12-07] MEDS: Famotidine 20 MG Tablet PO (08:58)
[2020-12-07 20:25] VITALS: BP 136/80; PULSE 73; RESP 16; TEMP 36.6; O2SAT 93
--- NOTE | 2020-12-07 23:49 | NURSING ---
Review and agree with BUCKSHOT SWAGE OPERATOR assessment.
[2020-12-08] MEDS: Acetaminophen 500 MG Tablet 1000 MG PO ×3 (05:52→21:03)
--- NOTE | 2020-12-08 06:21 | NURSING ---
dressing removed from the rt hip as per order, steri-strips are noted to the rt superior hip with old dark drainage noted. incision left potato chip maker. incision to the rt hip was intact and well approximated, 29 osbaldo are noted on the incision. scant amt of old dried drainage is noted to the distal end of the incision. incision left marti, pt tolerated the removal of the mepilex well
[2020-12-08 07:30] VITALS: BP 154/88; PULSE 69; RESP 18; TEMP 36.7; O2SAT 94
[2020-12-08] MEDS: Famotidine 20 MG Tablet PO (07:45)
[2020-12-08] MEDS: Meloxicam 7.5 MG Tablet PO ×2 (07:45→21:02)
[2020-12-08] MEDS: oxyCODONE 5 MG Tablet PO ×2 (07:45→17:27)
[2020-12-08] MEDS: Aspirin 81 MG TAB.CHEW PO ×2 (07:45→17:22)
--- NOTE | 2020-12-08 11:13 | PN_ITS ---
Progress Note ED was seen on team rounds today. His mother Jillian was present in the room. Afebrile VSS Maintaining appropriate oxygen saturation on RA Oral intake is good Discussed with nursing - no problems that need addressed Reviewed the PT/OT notes Medication list reviewed. The last 2 days he has only taken the Oxy IR once a day. Tells me he has adequate pain control. He denies CP, shortness of breath, palpitations, lightheadedness, dysuria, cough, nausea/vomiting/abdominal pain, constipation and diarrhea. He slept well last night. Physical Exam Const alert, oriented x3 and no apparent distress Constitutional Narrative: Making good eye contact with the TEAM and asking appropriate questions. General Appearance: cooperative Eyes conjunctivae normal and no scleral icterus Eyes Narrative: The R eye does not track as well as the left. Resp normal respiratory effort, normal air movement, no retractions, no use of accessory muscles and clear to auscultation bilaterally Effort and Inspection: able to speak in complete sentences Cardio regular rate, regular rhythm, no murmurs and no gallops GI normal to inspection, nondistended, normoactive bowel sounds, soft to palpation and non-tender Extremity no calf tenderness Skin General Skin Exam: no breakdown Rashes: no rashes Assessment & Plan Assessment/Plan (1) Acute blood loss anemia: (2) Status post right hip replacement: (3) Hip dysplasia, congenital: (4) Physical debility: (5) Apert's syndrome: PLAN: 1. continue therapy. 2. He is ambulating with a FWW at [facility] 3. Recheck lab on the or . 4. He will stay in rehab until his DC date of Dec 17 and he will be discharged and go for elective L TANISHA that day. If needed will come back to rehab when discharged by ortho. Visit Charges Inpatient E&M: 98777 Subs Hosp L2
--- NOTE | 2020-12-08 13:00 | NURSING ---
Called Narendra Montes and reported to nurse and surgical tech that patient is here until he can discharge to his next surgical procedure and appt on the with Ray will be cancelled. Nursing here to take osbaldo out.
--- NOTE | 2020-12-08 13:29 | CASEMGMT ---
Social Work IDT met with patient and mother for Team meeting. Discussed patient's progress in therapy and nursing. Pt progressing well. Explained Medicare approved 13 days with DC 12/17. Pt has other hip surgery scheduled for 12/17. The goal is for pt to DC to surgery then readmit after for continued therapy prior to returning home alone. Notified seo coordinator. Will ReTeam next week. SW to continue to follow. Veronica Vale, PERFORMANCE REPORTER APPELLATE COURT CLERK
[2020-12-08 19:28] VITALS: BP 157/80; PULSE 72; RESP 16; TEMP 36.6; O2SAT 96
[2020-12-08 19:54] VITALS: PULSE 72; RESP 16; O2SAT 96
[2020-12-08] MEDS: Senna/Docusate Sodium 1 Tablet 2 TABLET PO (21:02)
[2020-12-09] MEDS: Acetaminophen 500 MG Tablet 1000 MG PO ×3 (05:42→21:52)
[2020-12-09 07:04] VITALS: BP 142/92; PULSE 74; RESP 17; TEMP 36.7; O2SAT 96
[2020-12-09] MEDS: Famotidine 20 MG Tablet PO (07:52)
[2020-12-09] MEDS: Meloxicam 7.5 MG Tablet PO ×2 (07:52→21:52)
[2020-12-09] MEDS: Senna/Docusate Sodium 1 Tablet 2 TABLET PO ×2 (07:52→21:52)
[2020-12-09] MEDS: Aspirin 81 MG TAB.CHEW PO ×2 (07:52→17:44)
[2020-12-09] MEDS: oxyCODONE 5 MG Tablet PO (14:42)
[2020-12-09 18:56] VITALS: BP 138/88; PULSE 76; RESP 18; TEMP 36.6; O2SAT 95
[2020-12-09 22:00] VITALS: PULSE 77; RESP 16; O2SAT 95
[2020-12-10] MEDS: Acetaminophen 500 MG Tablet 1000 MG PO ×3 (06:32→21:37)
[2020-12-10] MEDS: Aspirin 81 MG TAB.CHEW PO ×2 (07:59→16:56)
[2020-12-10] MEDS: Meloxicam 7.5 MG Tablet PO ×2 (07:59→20:19)
[2020-12-10] MEDS: Senna/Docusate Sodium 1 Tablet 2 TABLET PO ×2 (07:59→20:20)
[2020-12-10] MEDS: Famotidine 20 MG Tablet PO (07:59)
[2020-12-10] MEDS: oxyCODONE 5 MG Tablet PO (08:01)
[2020-12-10 08:16] VITALS: BP 146/85; PULSE 74; RESP 16; TEMP 36.7; O2SAT 100
--- NOTE | 2020-12-10 09:20 | PCM.PN.BLA ---
Progress Note Afebrile VSS - systolic BP is frequently mildly elevated. The diastolic is usually good. Pt is hesitant to start a medication Maintaining appropriate oxygen saturation on RA Oral intake is good Discussed with nursing - no problems that need addressed Reviewed the PT/OT/ST notes Medication list reviewed. Pain is well controlled. No complaints today. Denies CP, Calf pain, SOB. No dysuria. Physical Exam Const alert, oriented x3 and no apparent distress Chest Chest: symmetrical chest wall rise Resp normal respiratory effort and clear to auscultation bilaterally Cardio regular rate, regular rhythm, no murmurs and no gallops GI normal to inspection, nondistended, normoactive bowel sounds, soft to palpation and non-tender Extremity normal capillary refill and no calf tenderness Extremity Narrative: mild edema of the R ankle - more likely than not just due to expected swelling after a TANISHA Skin General Skin Exam: no breakdown Rashes: no rashes Wound Narrative: The incision is intact with no dehiscence, no erythema and no purulent discharge. Psych mental status grossly normal, thought process normal and cooperative Assessment & Plan Assessment/Plan (1) Hx of total hip arthroplasty: (2) Physical debility: (3) Acute blood loss anemia: PLAN: Continue therapy. Will have the L TANISHA on 12/17/20 and then return to rehab. Visit Charges Inpatient E&M: 19566 [facility] Hosp L1
[2020-12-10 19:07] VITALS: BP 142/78; PULSE 77; RESP 16; TEMP 36.7; O2SAT 98
[2020-12-10 22:00] VITALS: PULSE 72; RESP 16; O2SAT 97
[2020-12-11] MEDS: Acetaminophen 500 MG Tablet 1000 MG PO ×3 (06:02→22:16)
[2020-12-11 07:11] VITALS: BP 147/87; PULSE 72; RESP 16; TEMP 36.6; O2SAT 97
[2020-12-11] MEDS: Aspirin 81 MG TAB.CHEW PO ×2 (08:32→17:47)
[2020-12-11] MEDS: Meloxicam 7.5 MG Tablet PO ×2 (08:32→22:17)
[2020-12-11] MEDS: Famotidine 20 MG Tablet PO (08:32)
[2020-12-11] MEDS: Senna/Docusate Sodium 1 Tablet 2 TABLET PO ×2 (08:32→22:16)
[2020-12-11] MEDS: oxyCODONE 5 MG Tablet PO (08:34)
--- NOTE | 2020-12-11 18:57 | PN_ITS ---
Progress Note Afebrile VSS Maintaining appropriate oxygen saturation on RA Oral intake is good having regular BM's Discussed with nursing - no problems that need addressed Reviewed the PT/OT notes Medication list reviewed. Parekh is well controlled and he is sleeping well. No CP, SOB, hemoptysis or calf pain. Physical Exam Const alert, oriented x3 and no apparent distress General Appearance: cooperative HEENT moist oral mucous membranes Resp normal respiratory effort and clear to auscultation bilaterally Cardio regular rate, regular rhythm, no murmurs, no rub and no gallops GI normal to inspection, nondistended, normoactive bowel sounds, soft to palpation and non-tender Extremity no calf tenderness Extremity Narrative: Mild ankle edema on the R. KERWIN hose in place Skin General Skin Exam: no breakdown Rashes: no rashes Wound Narrative: the incision is intact with no dehiscence. There is no erythema, no increased warmth to touch around the incision and non purulent DC. Psych mental status grossly normal, thought process normal, cooperative and affect normal Assessment & Plan Assessment/Plan (1) Status post total hip replacement, right: (2) Physical debility: PLAN: 1. Continue therapy 2. Will obtain preop labs on 12/16/2020 3. Discharge for left total hip replacement on 12/17/2020 anticipating he will return to rehab on 12/18/2020. Visit Charges Inpatient E&M: 96152 [facility] Hosp L1
[2020-12-11 19:58] VITALS: BP 131/86; PULSE 74; RESP 17; TEMP 36.7; O2SAT 96
[2020-12-12] MEDS: Acetaminophen 500 MG Tablet 1000 MG PO ×3 (05:33→21:10)
[2020-12-12] MEDS: oxyCODONE 5 MG Tablet PO ×2 (05:44→21:22)
[2020-12-12 07:45] VITALS: BP 146/93; PULSE 80; RESP 18; TEMP 36.5; O2SAT 100
[2020-12-12] MEDS: Senna/Docusate Sodium 1 Tablet 2 TABLET PO ×2 (08:02→21:16)
[2020-12-12] MEDS: Aspirin 81 MG TAB.CHEW PO ×2 (08:03→16:34)
[2020-12-12] MEDS: Meloxicam 7.5 MG Tablet PO ×2 (08:03→21:10)
[2020-12-12] MEDS: Famotidine 20 MG Tablet PO (08:03)
[2020-12-12 19:30] VITALS: BP 122/78; PULSE 72; RESP 18; TEMP 36.5; O2SAT 95
[2020-12-13] MEDS: Acetaminophen 500 MG Tablet 1000 MG PO ×3 (06:39→21:47)
[2020-12-13] MEDS: oxyCODONE 5 MG Tablet PO (06:39)
[2020-12-13 07:30] VITALS: BP 147/85; PULSE 69; RESP 18; TEMP 36.7; O2SAT 97
[2020-12-13] MEDS: Aspirin 81 MG TAB.CHEW PO ×2 (07:56→15:49)
[2020-12-13] MEDS: Famotidine 20 MG Tablet PO (07:56)
[2020-12-13] MEDS: Meloxicam 7.5 MG Tablet PO ×2 (07:57→21:47)
[2020-12-13] MEDS: Senna/Docusate Sodium 1 Tablet 2 TABLET PO (07:58)
[2020-12-13 21:50] VITALS: BP 158/86; PULSE 70; RESP 17; TEMP 36.6; O2SAT 97
[2020-12-13 22:00] VITALS: RESP 16; O2SAT 97
[2020-12-14] MEDS: Acetaminophen 500 MG Tablet 1000 MG PO ×3 (05:29→20:58)
[2020-12-14] MEDS: Meloxicam 7.5 MG Tablet PO ×2 (07:58→20:59)
[2020-12-14] MEDS: Famotidine 20 MG Tablet PO (07:58)
[2020-12-14] MEDS: Aspirin 81 MG TAB.CHEW PO ×2 (07:58→17:12)
[2020-12-14 08:03] VITALS: BP 170/104; PULSE 70; RESP 18; TEMP 36.7; O2SAT 100
[2020-12-14] MEDS: oxyCODONE 5 MG Tablet PO ×2 (09:11→17:12)
--- NOTE | 2020-12-14 14:33 | NURSING ---
UP AND AMBULATED AROUND HALLS AND COMPLETED NUSTEP
[2020-12-14 20:12] VITALS: BP 135/90; PULSE 64; RESP 18; TEMP 36.4; O2SAT 95
[2020-12-15 07:06] LABS: Absolute Lymphocyte Count 1.38 X10^3/uL (0.83-4.51); Absolute Neutrophil Count 3.5 X10^3/uL (2.0-7.7); Basophil# 0.02 X10^3/uL; Basophil% 0.3 % (0-1); Eosinophil# 0.33 X10^3/uL; Eosinophils% 5.7 % (0-5); Hematocrit 36.8 % (40-54); Hemoglobin 12.1 g/dL (13.0-16.5); Lymphocyte # 1.38 X10^3/ul (0.83-4.51); Lymphocyte % 23.9 % (19-41); Mean Corp Hgb Conc 32.9 g/dL (32-36); Mean Corpuscular Hgb 29.4 pg (27.0-32.0); Mean Corpuscular Volume 89.5 fL (80-94); Mean Platelet Vol. 8.6 fl (6.2-12.0); Monocyte% 8.7 % (0-10); NRBC Flagged by Analyzer 0 % (0-5); Neutrophil # 3.51 X10^3/uL (2.7-7.7); Neutrophil % 60.7 % (47-70); Platelet Count 416 K/mm3 (150-450); RBC Distribution Width CV 13.4 % (11.6-14.6); RBC Distribution Width SD 42.3 fl (35.1-43.9); Red Blood Count 4.11 M/mm3 (4.6-6.2); White Blood Count 5.8 K/mm3 (4.4-11.0)
[2020-12-15] MEDS: Acetaminophen 500 MG Tablet 1000 MG PO ×3 (07:08→21:05)
[2020-12-15 07:36] LABS: ALB/GLOB Ratio 0.7 RATIO (0.9-2.4); AST(SGOT) 30 U/L (15-37); Alanine Aminotransfer ALT/SGPT 35 U/L (16-61); Alkaline Phosphatase 91 U/L (45-117); Anion Gap 7 (5-15); BUN 18 mg/dL (7-18); BUN/Creat Ratio 19.9 RATIO (10-20); Calcium,Total 8.9 mg/dL (8.5-10.1); Chloride 105 mmol/L (98-107); Creatinine, Serum 0.91 mg/dL (0.70-1.30); EST Glomerular Filtration Rate 94 mL/min (>60); Est Glom Filt Rate - Afr Amer 114 mL/min (>60); Estimated Creatinine Clearance 103.43 ml/min; Globulin 4.3 g/dL (2.2-4.2); Glucose 91 mg/dL (74-106); Potassium 3.7 mmol/L (3.5-5.1); Protein, Total 7.3 g/dL (6.4-8.2); Sodium Level 141 mmol/L (136-145)
[2020-12-15 08:12] VITALS: BP 140/86; PULSE 66; RESP 12; TEMP 36.4; O2SAT 95
[2020-12-15] MEDS: Famotidine 20 MG Tablet PO (08:28)
[2020-12-15] MEDS: Aspirin 81 MG TAB.CHEW PO ×2 (08:28→17:13)
--- NOTE | 2020-12-15 09:00 | RAD_ITS ---
STUDY: X-RAY - PELVIS AND RIGHT HIP REASON FOR EXAM: Male, 50 years old. Surgery follow up -- Weightbearing with Supine Crossfire TECHNIQUE: 3 views of the pelvis and hip. COMPARISON: None. FINDINGS: The patient is status post right total hip replacement. There is good alignment. Postoperative soft tissue changes. Marked degree of osteoarthritis involving the left hip joint. RAD/HIP, UNI W/ Pelvis 2-3 Views IMPRESSION: Status post right total hip arthroplasty. It is unchanged. Marked degree of osteoarthritis of the left hip joint. Electronically Signed: Cosme Helm MD at 14:25 EDT , Service support ,
--- NOTE | 2020-12-15 09:17 | PCM.PN.BLA ---
Progress Note And he was seen on team rounds today. His mother was present in the room for rounds. All questions were answered. Afebrile VSS - blood pressures are more often high than not. Blood pressure this morning is 140/86 and last night at bedtime was 135/90. He is not on an antihypertensive. Maintaining appropriate oxygen saturation on RA Oral intake is good Discussed with nursing - no problems that need addressed. [facility] [employer] are due to come out today. Dr. Salazar would like pictures of the incision before and after staple removal. Reviewed the PT/OT notes Medication list reviewed. All lab from this morning was personally reviewed. Hemoglobin is 12.1. White blood cell count is within normal limits and the neutrophils are 60% with normal immature neutrophils. Eosinophils are mildly increased at 5.7% but the patient has no rash and denies pruritus. BMP is unremarkable and electrolytes are within normal limits. Liver panel is unremarkable. Physical Exam Const alert, oriented x3 and no apparent distress General Appearance: cooperative and comfortable Eyes Eyes Narrative: wide set eyes, proptosis, unchanged Resp normal respiratory effort, normal air movement and clear to auscultation bilaterally Effort and Inspection: able to speak in complete sentences Cardio regular rate, regular rhythm, S1 normal heart sound, S2 normal heart sound and no gallops GI normal to inspection, nondistended, normoactive bowel sounds, soft to palpation and non-tender Extremity no calf tenderness and no pedal edema Psych mental status grossly normal, thought process normal and affect normal Assessment & Plan Assessment/Plan (1) Status post right hip replacement: (2) Physical debility: (3) Acute blood loss anemia: PLAN: H/H is stable Jacob were removed today and the incision is intact. There is no significant erythema and no purulent DC. No significant increased warmth in the area. DC Meloxicam in preparation for surgery. Plan on surgery Tuesday and then likely transfer back to rehab 24-48 hours after surgery. Monitor the BP closely. It is mildly elevated at times. Both his father and his grandmother had HTN. Start non-pharmacologic treatment with low salt, no caffeine and some weight loss. Visit Charges Inpatient E&M: 97532 Subs Hosp L2
--- NOTE | 2020-12-15 11:03 | WOUNDNOTE ---
wound photo: right hip
--- NOTE | 2020-12-15 11:04 | WOUNDNOTE ---
wound photo: right hip
--- NOTE | 2020-12-15 11:32 | NURSING ---
29 osbaldo removed. no S/S infection. PT tolerated well. Pic of incision taken by wound nurse and placed in chart p/Dr Salazar request.
--- NOTE | 2020-12-15 14:05 | CASEMGMT ---
Social Work Team meeting held. Patient present as well as patient mother. Discharge date set for 12/17/2020 to acute care setting for surgery. Patient able to have all questions answered by medical team. Patient to continue with further care and treatment on the Rehab Unit until time of discharge. Proposed discharge date: 12/17/2020 Disposition: D/C to surgery. Jose DICKEY, MAKENZIES
[2020-12-15 19:40] VITALS: BP 150/90; PULSE 70; RESP 16; TEMP 36.7; O2SAT 99
[2020-12-15] MEDS: Senna/Docusate Sodium 1 Tablet 2 TABLET PO (21:05)
[2020-12-15 22:00] VITALS: PULSE 75; RESP 16; O2SAT 96
--- NOTE | 2020-12-15 23:34 | NURSING ---
Pt ambulated around unit with x1/staff and wheeled walker.
[2020-12-16] MEDS: Acetaminophen 500 MG Tablet 1000 MG PO ×3 (06:23→22:33)
[2020-12-16] MEDS: Famotidine 20 MG Tablet PO (07:56)
[2020-12-16] MEDS: Aspirin 81 MG TAB.CHEW PO (07:56)
[2020-12-16] MEDS: Senna/Docusate Sodium 1 Tablet 2 TABLET PO ×2 (07:57→22:34)
[2020-12-16 08:27] VITALS: BP 145/87; PULSE 76; RESP 17; TEMP 36.5; O2SAT 95
[2020-12-16 19:49] VITALS: BP 151/91; PULSE 68; RESP 16; TEMP 36.4; O2SAT 97
[2020-12-17] MEDS: Famotidine 20 MG Tablet PO (05:54)
[2020-12-17 07:35] VITALS: BP 156/90; PULSE 74; RESP 16; TEMP 36.5; O2SAT 95
[2020-12-17 08:29] VITALS: BP 156/90; PULSE 74; RESP 16; TEMP 36.5; O2SAT 95
--- NOTE | 2020-12-17 08:40 | NURSING ---
Pt Discharged home. Discharge instruction, medications and appointments reviewed with pt. denies questions or concerns
== END 2020-12-17 08:44 | disposition home or self-care (01) | DRG 470 ==
PROVIDERS: Specialist; Admitting Provider Internal Medicine; PCP Family Medicine; Visit Provider Internal Medicine
DX: Z47.1 Aftercare following joint replacement surgery (principal); I45.2 Bifascicular block; Z96.641 Presence of right artificial hip joint; E66.9 Obesity, unspecified; Q67.6 Pectus excavatum; Q70.13 Webbed fingers, bilateral; Q70.33 Webbed toes, bilateral; M16.7 Other unilateral secondary osteoarthritis of hip; R94.31 Abnormal electrocardiogram [ECG] [EKG]; M19.90 Unspecified osteoarthritis, unspecified site; Q65.89 Other specified congenital deformities of hip; Z79.82 Long term (current) use of aspirin; Z79.899 Other long term (current) drug therapy; Z68.30 Body mass index [BMI] 30.0-30.9, adult
CPT/HCPCS: 36415; 73502; 80048; 80053; 82040; 82962; 83735; 85025; 85027; 87081; 88305; 88311; 93005; 96365; 96366; 97110; 97116; 97162; 97166; 97530; 97535; 97802; 99218; 99251; C1713; C1776; J7120; G0378; G0463; J2405

== ENCOUNTER 2020-12-17 17:33 | Inpatient (IN) | payer MEDICARE, MEDICAID, SELFPAY ==
[2020-12-17] VITALS (29 sets, daily range): BP systolic 90–142; BP diastolic 59–106; PULSE 50–89; RESP 11–20; TEMP 35.8–36.9; O2SAT 93–100; BMI 33.8; BMI 31.1
[2020-12-17] MEDS: Lactated Ringers 1,000 ML 999 ML IV ×2 (09:20→15:55)
[2020-12-17] MEDS: Acetaminophen 500 MG Tablet 1000 MG PO ×2 (09:44→21:18)
[2020-12-17] MEDS: Celecoxib 200 MG Capsule 400 MG PO (09:46)
[2020-12-17] MEDS: Gabapentin 600 MG Tablet PO (09:47)
[2020-12-17] MEDS: Cefazolin 2 GM in 0.9% Normal Saline 100 ML IV (11:13)
--- NOTE | 2020-12-17 11:15 | HIP_PTH ---
PATIENT: DESTINI COREY LOC: MS2 U#:[id number] AGE/SX: 50/M ROOM: [facility] [place] RE12/17/[address]: Dr. Sugar Galdamez MD : 1970 BED: 1 DIS: 12/18/2020 SPEC #: [id number] RECD: 12/17/20 14:25 STATUS: MARY REQ #: [id number] DUNCAN: 12/17/20 11:[address]: Brennon Salazar DEPT: SURGICAL PATHOLOGY RECD BY: Andi Eric ENTERED: 12/18/20 08:03 SP TYPE: TOTAL HIP OTHR DR: MD Dr. Last Munoz MD Dr. Steven Widmer, MD Tissues: Hip, NOS Procedures: Decalcification bone/plaque Surgery Specimen Level IV Comments: @ Ordering doctor for DEC edited from to DR.SWIDME Rouse by JSOSELINE at 12/18/20 1403 @ Ordering doctor for SUIV edited from to DR.SWIDME Rouse by JOSSELINE at 12/18/20 1403 @ Submitting doctor edited from to @ by JOSSELINE at 12/18/20 1403 HEADER OPERATION: ERAS, robotic assisted total hip arthroplasty, posterior PRE-OP DIAGNOSIS: Severe left hip osteoarthritis with flexion contracture, Apert?s syndrome TISSUE SUBMITTED: Left hip tissue and bone MICROSCOPIC DIAGNOSIS Left hip bone and tissue, total hip replacement/resection: Femoral head with severe degenerative osteoarthritic changes. A Fragment of fibroconnective tissue, fibroadipose tissue and reactive synovial tissue. AVIVA:flavio 12/22/2020 MICROSCOPIC DESCRIPTION Slides are reviewed. GROSS DESCRIPTION Received is one container labeled with the patient's name and designated left hip bone and tissue. The specimen consists of a deformed femoral head measuring 6.5 x 6.5 x 5 cm. Also present is a detached piece of bone consistent with portion of femoral neck measuring 3 x 2 x 1 cm. The articular surface displays prominent osteophyte formation, eburnation and bone erosion. Also present in the specimen container are multiple irregular fragments of bone reamings measuring in aggregate 8 x 7 x 2 cm. Also present in the container on top of femur is a piece of soft tissue measuring 2 x 1 x 0.1 cm. Infirmary Attendant sections are submitted in two cassettes after decalcification as follows: 1 - femoral head, 2 - bone reamings and soft tissue. / AVIVA:flavio 12/18/20 TC:5 CPT: 86611, 76829
[2020-12-17] MEDS: dexAMETHasone 10 MG/ML Vial IV (11:17)
[2020-12-17] MEDS: Lactated Ringers 1,000 ML 75 ML IV (13:00)
--- NOTE | 2020-12-17 13:27 | PCM.OPRPT ---
Report of Operation Date of Procedure: 12/17/20 Pre-Operative Diagnosis: Secondary osteoarthritis due to left hip dysplasia Post-Operative Diagnosis: Secondary left hip osteoarthritis due to left hip dysplasia Surgery/Procedure Performed:: Left robotic assisted posterior total hip replacement Description of Surgical Findings:: Stable hip. Leg lengths were equal using the Gabirel system. Surgeon: Brennon Salazar food and nutrition services assistant: Mika Astudillo Type of Anesthesia: Spinal Anesthesiologist: Gopal Rosenberg Special Medications: 2 g Ancef, 1 g TXA at incision, 1 g TXA closure, 10 mg Decadron, joint cocktail (5 mg Duramorph, 30 mL of 0.5% Ropivicaine, 1000 units of epinephrine, 30 mg of Toradol) Description of Procedure: Components used: 1. [place]field Accolade 2 size 5 stem, 127 neck angle 2. Anibal tritanium 54 mm acetabular shell 1 screw 3. [employer]field X3 polyethylene liner, alpha code E 4. [employer] Biolox delta 36 mm, 0 mm neck femoral head Brief history operative indications: 50-year-old male with history of Apert syndrome and bilateral hip dysplasia presented with severe hip flexion contractures, dysplasia and secondary osteoarthritis. Patient had a previous right total hip replacement 2 weeks ago. Risks and benefits were discussed with the patient which included but were not limited to blood loss, DVTs, PEs, infection, neurovascular damage, and dislocation. In light of all this patient did agree to proceed with a total hip arthroplasty. Procedure: On the date of procedure the patient's L hip was marked in the preoperative area. Patient was then taken back to the operating room where anesthesia assumed control of the C-spine and airway and administered anesthetic. Patient was transferred to the operating table and placed in the lateral decubitus position with the affected hip up. The patient was secured in the bed with the lateral positioners and leg lengths were checked. The L lower extremity was then prepped out in a sterile fashion using chlorhexidine while the surgeon scrubbed. Upon reentering the room the R lower extremity was draped in the standard orthopedic fashion and the incision was marked. A timeout was called and everyone agreed upon the side, the site, the procedure be performed, antibiotics given, and patient's identity. At this time incision was made through skin, subcutaneous tissue, and fat down to fascia. The fascia was then incised and a Charley retractor was placed. The soft tissue was then cleared from the posterior external rotators and the piriformis was identified. Piriformis was taken down and tagged. The remainder of the short external rotators were taken down. Capsulotomy was made and the posterior capsule was tagged. The retractors were then placed inside the capsule. The femoral neck was identified and a cleanup cut was made. At this time a power corkscrew was used to remove the femoral head. At this time all bony debris was removed from the acetabulum. Attention was then turned to the femur where the proximal femur was appropriately exposed using a carlton retractor. The box feeder was used to remove the lateral bone. Canal finder was used to verify the canal. The proximal femoral femur was then sequentially broached to a size 5 broach which had an appropriate fit. The broach was left in place. Our attention was then directed to the acetabulum and the anterior retractor was placed and a Gelpi was used to retract the posterior capsule superiorly. All soft tissue debris was removed from the pulvinar and labrum of the joint. The acetabulum was then registered with robotics after placing 2 pelvic iliac crest pins. The robotic was then brought in and the acetabulum was then reamed to 54 millimeters. At this time a and 54 mm Anibal TRIDENT 2 cup was opened and impacted into place. Once it was securely fastened our attention was again turned towards the femur and the high offset neck was chosen and a 36 mm head with 0 mm offset was trialed. The hip was properly reduced using traction and external rotation. Stability was checked with the appropriate amount of shuck, no impingement with external rotation, and stable at 90? flexion and 90? internal rotation. Leg lengths were checked using the [employer] robotic system and compared to the changes from preoperative as well as changes noted on the contralateral side from 2 weeks ago. Once the hip was determined to be stable the trial components were dislocated and 1 bone screw was placed in the safe zone of the acetabular component. Once it was securely fastened down the polyethylene liner was placed and security was verified. The proximal femur was again exposed and the components were removed from the wound. The final components were verified and opened. The wound was copiously irrigated out with normal saline. The acetabulum was checked for any residual debris. The final components were placed and impacted. Traction and external rotation were again used to reduce the hip. After adequate reduction the hip remained stable with appropriate leg lengths. The wound was then copiously irrigated with normal saline once more, and hemostasis was obtained. A 1 minute irrisept and 3-minute dilute Betadine lavage was performed. The piriformis was not repairable due to the change in the patient's hip mechanics from his preoperative contractures. However, the preserved capsule was repairable and was repaired using bone tunnels in #2 FiberWire. Closure was then done using #1 Vicryl to close the fascia. A 2-0 Vicryl interrupted sutures were used to close the subcutaneous skin. Skin osbaldo were used for final skin closure. A sterile dressing was placed. Patient was awakened by anesthesia and transferred to the rfort worth. Patient was then transferred to the PACU for recovery. Postoperative plan: Patient will get 24 hours postop antibiotics. Patient will get in-house physical therapy and will be weight-bear as tolerated. Patient will follow up in office in 2 weeks for a wound check and x-rays. Aspirin 81 mg twice daily for DVT prophylaxis for 4 weeks postop. Complications No intraoperative complications were encountered. Admit VTE Documentation VTE Present on Admission: No VTE Mechan Device Prophylaxis: SCD's and Thigh High KERWIN Hose VTE Pharm Prophylaxis ordered?: Yes
--- NOTE | 2020-12-17 14:26 | PN.HOSP_ITS ---
Subjective Subjective Mr. Rojo is a 50-year-old male who presented to [facility] on 12/17/2020 for a posterior robotic assisted total left hip arthroplasty. The patient has unfortunately been having ongoing pain in his bilateral hips for 10 years. He had a right total hip arthroplasty done on 12/03/2020 from which he d id well. 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 He has complained of pain is graded as 8 out of 10 with activities. His pain is intermittent. Pain was increased with up and down going on stairs as well as with walking. He had been having bilateral groin pain but his right groin pain subsided with his right total hip arthroplasty. He was having issues with ADLs and IADLs and failed multiple conservative measures. We have been consulted for postoperative medical management. Postoperatively the patient had some respiratory issues and difficulty awaking. He had spinal anesthesia but got propofol and some Versed for twilight during the case. He did require an LMA during the case and then had to be placed on BiPAP for hypercapnia. Postoperatively his initial ABG showed a pH of 7.24 with a PCO2 of 60.8 this improved on repeat to a pH of 7.31 and a PCO2 of 56.2. He was oxygenating well. When I discussed the case with anesthesia they felt that he he should remain on BiPAP as he was still sleepy but starting to wake up. At that time I instructed anesthesia to place him in the ICU and continue BiPAP given his mental status issues and his continued respiratory needs. His BiPAP settings were 12/8. Upon my arrival to PACU the patient was alert and oriented x3 and family is at the bedside. Family does indicate he snores quite significantly and they have noticed that he stops breathing periodically through the night. Objective Data Objective Data Vital Signs: Vital Signs Temp Pulse Resp BP Pulse Ox 98.5 F 76 18 142/89 H 98 12/17/20 09:20 12/17/20 09:20 12/17/20 09:20 12/17/20 09:20 12/17/20 09:20 Oxygen Delivery Method Room Air Weight: 107.1 kg Body Mass Index (BMI) 33.8 Intake & Output: Intake and Output for Last 24 Hours 12/15/20 12/16/20 12/17/20 23:59 23:59 23:59 Intake Total 330 / 330 Balance 330 / 330 Lab / Micro Data Micro: Microbiology 12/12/20 08:50 Swab (Method) Nasal Screen MRSA/MSSA - Final Physical Exam Const alert, oriented x3, no apparent distress and healthy appearing Constitutional Narrative: Obese middle-aged white male sitting up in bed family is at the bedside patient is awake and alert and oriented x3 very pleasant Exam Limitations: no limitations Nutritional Appearance: obese HEENT head/scalp atraumatic and moist oral mucous membranes HEENT Narrative: Increase pupillary distance with distorted facial features related to his Alperts syndrome that would increase risk for obstructive sleep apnea Head and Scalp: normocephalic Resp normal respiratory effort, no retractions, no use of accessory muscles and clear to auscultation bilaterally Auscultation: Negative for crackles, rales, rhonchi or wheezes Cardio regular rate, regular rhythm, S1 normal heart sound, S2 normal heart sound, no gallops and no clicks; Negative for no murmurs, no rub or no JVD GI normal to inspection, nondistended, normoactive bowel sounds, soft to palpation, non-tender and non-distended; Negative for hepatosplenomegaly Extremity normal to inspection and no clubbing, cyanosis or edema Extremity Narrative: KERWIN hose bilateral lower extremities with polar ice on left hip Peripheral Pulses: Yes pulses 2+ throughout Neuro oriented x3, CN's II-XII intact bilaterally and no focal motor deficits Sensorium / Orientation: awake and alert Assessment & Plan Assessment/Plan (1) Osteoarthritis of left hip: (2) Status post left hip replacement: PLAN: Acute hypercapnic respiratory failure -Likely related to sedation and sleep apnea-undiagnosed -Recommend continued BiPAP until patient is awake enough and maintains wakefulness -Continue BiPAP at at bedtime while hospitalized and would recommend he transition to rehab with this prior to discharge -Discussed with the patient and his family in PACU that he needs a sleep study as an outpatient as he likely has undiagnosed obstructive sleep apnea which contributed to his issues postoperatively -Interestingly he did have this procedure 2 weeks ago and had no postoperative issues -She did get propofol and Versed for twilight during the case -No need for pulmonary medicine consult at this time given improved mental status but will need referral as an outpatient after discharge Left hip pain secondary to osteoarthritis from left hip dysplasia status post left robotic assisted posterior hip TANISHA -Postop day 0 -Pain management per primary service -Bowel regimen -PT/OT consultation -May possibly need rehab at discharge Recent right hip total arthroplasty -Patient is doing well -Did require rehab stent for approximately 1 week after discharge prior to home- going GERD -Continue famotidine 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
[2020-12-17 14:36] LABS: Bedside Glucose 214 mg/dL (70-110)
[2020-12-17] MEDS: Ipratropium/Albuterol Sulfate 3 ML AMPUL.NEB INHALATION (14:39)
--- NOTE | 2020-12-17 14:47 | RAD_ITS ---
STUDY: X-RAY - PELVIS AND LEFT HIP REASON FOR EXAM: Male, 50 years old. Post Op -- AP both hips on single caprice/lateral of op hip PACU TECHNIQUE: 2 views of the pelvis and hip. COMPARISON: None. FINDINGS: The patient is status post left hip replacement. There is good alignment. Postoperative soft tissue changes. RAD/Hip Min 2 Views (Portable) IMPRESSION: Status post left hip replacement. There is good alignment. Postoperative soft tissue changes. Electronically Signed: Cosme Helm MD at 15:31 EDT , Service support ,
[2020-12-17 15:15] LABS: Allen Test Positive; Base Excess -1 mmol/L (-2 to +2); Bicarbonate 26.2 mmol/L (22-26); Blood Gas Specimen Type ART; PO2 119 mmHG (75-100); SITE L Radial; SO2 98 % (95-99); Total Carbon Dioxide 28 mmol/L; pCO2 60.8 mmHg (35-45); pH 7.24 (7.35-7.45)
--- NOTE | 2020-12-17 15:26 | SUR.PHASEII ---
AT 1515: PATIENT MUCH MORE AROUSABLE, TALKATIVE, MILDLY ANXIOUS. DENIES ANY PAIN OR NAUSEA. NOTED THAT WHEN PATIENT ASLEEP, HE SNORES AND HAS 10+ PERIODS OF APNEA BUT AROUSES EASILY. PATIENT STATES HE DOES SNORE AT HOME AND HAS BEEN PREVIOUSLY TOLD HE HAS PERIODS OF APNEA. DR HARP WAS NOTIFIED OF ABG RESULTS SHOWING RESPIRATORY ACIDOSIS AND REVIEWED VALUES, CALLED RT SHIMA, TO START BIPAP NOW ORDERED, WILL UPDATE DR HARP IN 30 MINUTES VERBALLY DIRECTED. AT 1526 BIPAP STARTED PER JONATAN & RT SHIMA, AT 12/8, RR 12, FiO2 40%. WILL MONITOR FOR EFFECT & TOLERANCE. 1541 DR HARP AT BEDSIDE, INSTRUCTED TO RECHECK ABG AT 1610. PATIENT STATES HE'S TOLERATING BIPAP WELL, DENIES C/O.
--- NOTE | 2020-12-17 15:48 | CPS ---
No critical values noted, Surgery RN notified by KILEY Goel
[2020-12-17 17:01] LABS: Allen Test Positive; Base Excess 2 mmol/L (-2 to +2); Bicarbonate 28.3 mmol/L (22-26); Blood Gas Specimen Type ART; FI02 40; O2 Delivery Device BiPAP; PO2 154 mmHG (75-100); SITE R Radial; SO2 99 % (95-99); Total Carbon Dioxide 30 mmol/L; pCO2 56.2 mmHg (35-45); pH 7.31 (7.35-7.45)
--- NOTE | 2020-12-17 17:22 | CPS ---
paranormal investigator nurse Marquita was notified of blood gas results by SHERIFF OFFICER Abelino Goel
[2020-12-17] MEDS: Lactated Ringers 1,000 ML 125 ML IV (18:55)
[2020-12-17] MEDS: Cefazolin 1 GM/50 ML BAG IV (20:07)
--- NOTE | 2020-12-17 20:37 | CPS ---
Patient has been very responsive since arrival to ICU unit. Has been off BiPAP for this reason. Discussed with patient on wearing BiPAP tonight because of possible suspected sleep apnea. Patient agreeable to this.
[2020-12-17] MEDS: Senna/Docusate Sodium 1 Tablet 2 TABLET PO (21:19)
[2020-12-18] VITALS (11 sets, daily range): BP systolic 96–121; BP diastolic 65–85; PULSE 49–68; RESP 11–19; TEMP 36.6–36.7; O2SAT 98–100
[2020-12-18] MEDS: Cefazolin 1 GM/50 ML BAG IV (02:59)
[2020-12-18 03:34] LABS: Hematocrit 30.7 % (40-54); Hemoglobin 10.1 g/dL (13.0-16.5); Mean Corp Hgb Conc 32.9 g/dL (32-36); Mean Corpuscular Hgb 29.7 pg (27.0-32.0); Mean Corpuscular Volume 90.3 fL (80-94); Mean Platelet Vol. 8.9 fl (6.2-12.0); Platelet Count 417 K/mm3 (150-450); RBC Distribution Width CV 13.4 % (11.6-14.6); RBC Distribution Width SD 43.3 fl (35.1-43.9); White Blood Count 14.9 K/mm3 (4.4-11.0)
[2020-12-18 03:58] LABS: Anion Gap 6 (5-15); BUN 18 mg/dL (7-18); BUN/Creat Ratio 20.3 RATIO (10-20); Calcium,Total 8.5 mg/dL (8.5-10.1); Chloride 105 mmol/L (98-107); Creatinine, Serum 0.89 mg/dL (0.70-1.30); EST Glomerular Filtration Rate 96 mL/min (>60); Est Glom Filt Rate - Afr Amer 117 mL/min (>60); Estimated Creatinine Clearance 102.53 ml/min; Glucose 102 mg/dL (74-106); Potassium 5.1 mmol/L (3.5-5.1); Sodium Level 140 mmol/L (136-145)
[2020-12-18] MEDS: Acetaminophen 500 MG Tablet 1000 MG PO (05:06)
--- NOTE | 2020-12-18 08:35 | PCS.PANDOC ---
PANDEMIC DOCUMENTATION INITIATED: Date: 10/06/2020 Time: 190
[2020-12-18] MEDS: Aspirin 81 MG TAB.CHEW PO (08:44)
[2020-12-18] MEDS: Famotidine 20 MG Tablet PO (08:44)
[2020-12-18] MEDS: Ensure Surgery 237 ML LIQUID PO (08:45)
[2020-12-18] MEDS: Senna/Docusate Sodium 1 Tablet 2 TABLET PO (08:45)
[2020-12-18] MEDS: Ketorolac 15 MG/ML Vial IV (08:45)
--- NOTE | 2020-12-18 09:21 | PN.ORTHO_ITS ---
Subjective Subjective The patient was sitting in bedside chair eating breakfast upon examination. Patient denies any chest pain, shortness of breath, dizziness, lightheadedness, nausea or vomiting, or calf pain. Pain is controlled on medications. No adverse overnight events. Patient did require ICU admission with BiPAP postoperatively. Upon exam today patient has been off all oxygen and is doing very well at room air. He complains of minimal discomfort/pain in the left hip. He is not having any significant pain in the right hip. Patient postoperatively after his right total hip arthroplasty went to the rehab unit at [facility]. Plan is for patient to go back to the rehab unit for postoperative left hip. Objective Data Objective Data Vital Signs: Vital Signs Temp Pulse Resp BP Pulse Ox 98.0 F 64 11 L 105/82 H 98 12/18/20 07:37 12/18/20 07:37 12/18/20 07:37 12/18/20 07:37 12/18/20 09:01 Oxygen Flow Rate (L/min) 2 Oxygen Delivery Method Room Air Weight: 101 kg Body Mass Index (BMI) 31.1 Intake & Output: Intake and Output for Last 24 Hours 12/16/20 12/17/20 12/18/20 23:59 23:59 23:59 Intake Total 3860 / 3980 1530.00 / 1530.00 Output Total 1075 / 1075 0 / 0 Balance 2785 / 2905 1530.00 / 1530.00 Lab / Micro Data Result Diagrams: 12/18/20 03:25 12/18/20 03:25 Labs: Laboratory Results - last 24 hr 12/17/20 14:29: POC Glucose 214 H 12/18/20 03:25: WBC 14.9 H, RBC 3.40 L, Hgb 10.1 L, Hct 30.7 L, MCV 90.3, MCH 29.7, MCHC 32.9, RDW Std Deviation 43.3, RDW Coeff of Airam 13.4, Plt Count 417, MPV 8.9 12/18/20 03:25: Sodium 140, Potassium 5.1, Chloride 105, Carbon Dioxide 29.0, Anion Gap 6, BUN 18, Creatinine 0.89, Estim Creat Clear Calc 102.53, Est GFR (MDRD) Af Amer 117, Est GFR (MDRD) Non-Af 96, BUN/Creatinine Ratio 20.3 H, Glucose 102, Calcium 8.5 Micro: Microbiology 12/12/20 08:50 Swab (Method) Nasal Screen MRSA/MSSA - Final ABG Data ABG results: ABG 12/17/20 12/17/20 15:08 16:53 Specimen Type ART ART Sample Site L Radial R Radial pH 7.24 L 7.31 L Bicarbonate Actual 26.2 H 28.3 H Total CO2 28 30 Base Excess -1 2 O2 Saturation 98 99 O2 % 40 ABG pCO2 60.8 H 56.2 H ABG pO2 119 H 154 H Bruce Test Positive Positive O2 Delivery Device BiPAP Liter Flow 10.0 Clinical Comments simple mask 10L 01/28 r12 40% Radiography Diagnostic Testing: Radiology Impression Hip X-Ray 12/17/20 14:47 IMPRESSION: Status post left hip replacement. There is good alignment. Postoperative soft tissue changes. Electronically Signed: Cosme Helm MD at 15:31 EDT , Service support , Physical Exam Narrative Vital signs stable and afebrile. Patient is able to plantarflex and dorsiflex actively. Sensation is intact to light touch to saphenous, sural, superficial and deep peroneal, and tibial distribution. Dressing is clean dry and intact. Negative Homans bilaterally, negative signs and symptoms of DVT. Const alert, oriented x3 and no apparent distress Assessment & Plan Assessment/Plan (1) Status post left hip replacement: PLAN: 1. S/P left posterior total hip arthroplasty POD #1 2. Continue Pain Medications: Tylenol, meloxicam, oxycodone 3. DVT Prophylaxis: Take 81 mg aspirin twice daily for 4 weeks postoperatively for DVT prophylaxis 4. PT/OT: Weightbearing as tolerated with walker. Continue with posterior hip dislocation precautions for 3 months postoperatively 5. H & H: .7, asymptomatic. Postoperative anemia secondary to acute blood loss from surgery without any intra operative complications. 6. Reactive leukocytosis: Currently 14.9, afebrile. Patient did receive Decadron intraoperatively 7. Encouraged Incentive Spirometry 8. Continue postoperative medical management per medicine: Case was discussed with the hospitalist and she is in agreement for patient to be discharged to the rehab facility today. Patient is medically stable. 9. Disposition: Plan will be for discharge to rehabilitation unit [facility] today. Patient is medically and orthopedically stable. Patient will continue with above pain medications and DVT prophylaxis. Patient will need scheduled 2-week postoperative follow-up with [facility] for staple removal and x-rays. This was discussed with case management. I have reviewed the [place] Automated Rx Reporting System (OARRS) report for this patient for refill pattern and other prescriber involvement as part of the appropriate surveillance for the provision of acute and chronic controlled medications. The report was requested and reviewed on the date of this entry and was considered in the prescribing process.
--- NOTE | 2020-12-18 09:30 | CASEMGMT ---
RICHARD GUTIERRES Chart Review: Patient was admitted 12/03-12/04/20 following right total hip replacement. See RICHARD GUTIERRES assessment from 12/04/20. Patient was discharged to [facility] Inpatient Rehab. Patient was discharged from rehab on 12/17/20 and went to have elective surgery for left total hip replacement. Patient was admitted for care after hip surgery and will discharge back to Inpatient rehab today.
--- NOTE | 2020-12-18 09:35 | PCM.DC ---
Discharge Instructions Diet Discharge Diet: No restrictions Activity Discharge Activity: May Not Drive (while taking narcotic pain medications.) May shower in (days): 1 (only if incision is dry and without drainage. Do NOT soak/submerge in tub/pool/shaffer/stream/hot tub.)) Ice area for (Minutes): 20 (Every 1-2 hours [address] barrier between ice and skin.) Weight Bearing Status: Weight bearing as tolerated Keep extremity elevated above heart level: Operative Extremity Additional Activity Instructions:: Posterior hip dislocation precautions for 3 months postoperatively for bilateral hips Dressing / Incision Call your doctor if your incision/area has: Continuous Slow Oozing, Sudden Increased Bleeding, Increased Pain/ Swelling, Increased Redness and Foul Smelling Discharge Call your doctor if you observe: Fever of 101 or Higher, Shortness of breath, Chest pain, Calf discomfort and Uncontrolled pain Remove Dressing in: 4 days (Please remove dressing on December 22, 2020. No tape placed on skin once dressing is removed.) Additional Dressing/Incision Instructions:: Follow [facility] Post-op Instructions. Once postoperative dressing has been removed, only use gentle soap and water over the incision. Do not use any ointments, Neosporin, salves, alcohol pads over the incision for 6 weeks postoperatively. Do not submerge underwater for 6 weeks postoperatively. Continue with KERWIN hose/elastic stockings for 2 weeks postoperatively. May remove at nighttime but needs to be placed back on the leg during the day. Do NOT use alcohol with narcotic pain medication. Do NOT make important decisions while taking narcotic medication. If you have problems with taking your medication (rash, itching, nausea, etc.) call the office at once. Follow Up Care Test Results: Test results from this visit will be discussed in further detail at your follow-up appointment, if applicable. Discharge Plan Admission Admit Date/Time: 12/17/20 17:33 Attending Provider: Sugar Galdamez Primary Care Provider: Last Sommer Consulting Providers: Mary Ann Gardiner ; Sugar Galdamez ; Quique Graza ; Dereje Jones Instructions Additional Instructions / Restrictions: Patient will require scheduled appointment with [facility] 2 weeks postoperatively for x-rays and staple removal Discharge Orders/Prescriptions Prescriptions: New oxycodone 5 mg Tablet 5 - 10 mg PO Q4H PRN PRN (Reason: Pain Score 4-10) 5 Days Qty: 30 RF: 0 Continued sennosides-docusate sodium [Stool Softener-Stimulant Laxat] 8.6-50 mg tablet 2 tab PO BID Qty: 0 RF: 0 acetaminophen 500 mg tablet 1,000 mg PO TID Qty: 0 RF: 0 meloxicam 7.5 mg tablet 7.5 mg PO BID RF: 0 famotidine 20 mg tablet 20 mg PO DAILY RF: 0 aspirin 81 mg tablet,chewable 81 mg PO BIDCM RF: 0 Discontinued oxycodone 5 mg Tablet 5 - 10 mg PO Q4H PRN PRN (Reason: Pain Score 4-10) 4 Days Qty: 36 RF: 0 Referrals / Follow Up: Last Sommer MD [Primary Care Provider] - Mika Astudillo PA-C [PHYSICIAN QUALITY PROJECT MANAGER] - 01/01/21 Disposition Disposition (needs filled in before D/C Order can be placed): Inpatient Rehab Unit/Facility
--- NOTE | 2020-12-18 09:40 | PCM.PN.HOSP ---
Subjective Subjective Follow-up on postop medical management/left robotic assisted posterior hip replacement: Patient was seen and examined. His pain is controlled. Denied any new complaint. He has been off oxygen. Transferred from the ICU. Objective Data Objective Data Vital Signs: Vital Signs Temp Pulse Resp BP Pulse Ox 98.0 F 64 11 L 105/82 H 98 12/18/20 07:37 12/18/20 07:37 12/18/20 07:37 12/18/20 07:37 12/18/20 09:01 Oxygen Flow Rate (L/min) 2 Oxygen Delivery Method Room Air Weight: 101 kg Body Mass Index (BMI) 31.1 Intake & Output: Intake and Output for Last 24 Hours 12/16/20 12/17/20 12/18/20 23:59 23:59 23:59 Intake Total 3860 / 3980 1530.00 / 1530.00 Output Total 1075 / 1075 0 / 0 Balance 2785 / 2905 1530.00 / 1530.00 Lab / Micro Data Result Diagrams: 12/18/20 03:25 12/18/20 03:25 Labs: Laboratory Results - last 24 hr 12/17/20 14:29: POC Glucose 214 H 12/18/20 03:25: WBC 14.9 H, RBC 3.40 L, Hgb 10.1 L, Hct 30.7 L, MCV 90.3, MCH 29.7, MCHC 32.9, RDW Std Deviation 43.3, RDW Coeff of Airam 13.4, Plt Count 417, MPV 8.9 12/18/20 03:25: Sodium 140, Potassium 5.1, Chloride 105, Carbon Dioxide 29.0, Anion Gap 6, BUN 18, Creatinine 0.89, Estim Creat Clear Calc 102.53, Est GFR (MDRD) Af Amer 117, Est GFR (MDRD) Non-Af 96, BUN/Creatinine Ratio 20.3 H, Glucose 102, Calcium 8.5 Micro: Microbiology 12/12/20 08:50 Swab (Method) Nasal Screen MRSA/MSSA - Final ABG Data ABG results: ABG 12/17/20 12/17/20 15:08 16:53 Specimen Type ART ART Sample Site L Radial R Radial pH 7.24 L 7.31 L Bicarbonate Actual 26.2 H 28.3 H Total CO2 28 30 Base Excess -1 2 O2 Saturation 98 99 O2 % 40 ABG pCO2 60.8 H 56.2 H ABG pO2 119 H 154 H Bruce Test Positive Positive O2 Delivery Device BiPAP Liter Flow 10.0 Clinical Comments simple mask 10L 12 r12 40% Radiography Diagnostic Testing: Radiology Impression Hip X-Ray 12/17/20 14:47 IMPRESSION: Status post left hip replacement. There is good alignment. Postoperative soft tissue changes. Electronically Signed: Cosme Helm MD at 15:31 EDT , Service support , Physical Exam Narrative Physical exam: General: Alert, Oriented x3, Cooperative, No apparent distress HEENT: Atraumatic, craniosynostosis present Oral: Moist Mucosa Neck: Supple Lungs: Clear to auscultation Cardiovascular: HS I+II, regular, no murmurs Abdomen: Bowel Sounds Present, Soft, Non Tender Extremities: No edema, syndactyly of the fingers, dressing over the right hip with cooling mat in place Assessment & Plan Assessment/Plan (1) Osteoarthritis of left hip: QUALIFIERS: Osteoarthritis type: primary Qualified Code(s): M16.12 - Unilateral primary osteoarthritis, left hip (2) Status post left hip replacement: PLAN: 1. Acute hypercapnic respiratory failure secondary to anesthesia side effects with sedation/undiagnosed sleep apnea This is resolved. Patient is saturating well on room air He did require some BiPAP throughout the night and was in ICU Would encourage use of incentive spirometer 2. POD#1 status post left robotic assisted posterior hip replacement Pain is fairly controlled, continue pain management, PT and OT and wound recommendation per orthopedics team 3. Recent right hip total arthroplasty, stable 4. Hyperglycemia, will check HgbA1c 5. Rest of his chronic medical conditions including GERD, Apert's syndrome Meds reviewed Charges/Coding Visit Charges Inpatient E&M: 41804 Subs Hosp L2
--- NOTE | 2020-12-18 10:28 | CASEMGMT ---
Social Work SW met with pt in room and introduced self and role of SW. Pt stating he was in [facility] rehab unit and discharged from there for hip surgery. Pt stating he plans to return to Rehab to continue with his therapy. Call to [facility] in who confirms they are able to accept pt back. SADA spoke with JAYNA Brennan who confirms pt can be discharged today to . [facility] updated on discharge today. Pt states he will notify his family. Plan: Inpatient Rehab [facility] Bustam[facility]
[2020-12-18 10:44] LABS: Hemoglobin A1c 5.2 % (3.8-5.6)
== END 2020-12-18 11:30 | DRG 983 ==
LOC: SDC 18:17 → ICU 18:17 → MS2 12-18 08:26
PROVIDERS: Admitting Provider Specialist; PCP Family Medicine; Referring Provider Specialist; Visit Provider Internal Medicine
PROC: 8E0Y0CZ Robotic Assisted Procedure of Lower Extremity, Open Approach (ICD-10-PCS; CPT 27130; principal; 2020-12-17 10:45)
DX: J96.02 Acute respiratory failure with hypercapnia (principal); T41.295A Adverse effect of other general anesthetics, initial encounter; T42.4X5A Adverse effect of benzodiazepines, initial encounter; M16.32 Unilateral osteoarthritis resulting from hip dysplasia, left hip; R73.9 Hyperglycemia, unspecified; Q87.0 Congenital malformation syndromes predominantly affecting facial appearance; G47.33 Obstructive sleep apnea (adult) (pediatric); K21.9 Gastro-esophageal reflux disease without esophagitis; Y92.238 Other place in hospital as the place of occurrence of the external cause; E66.3 Overweight; Z68.33 Body mass index [BMI] 33.0-33.9, adult; Z79.82 Long term (current) use of aspirin; Z79.1 Long term (current) use of non-steroidal anti-inflammatories (NSAID); Z79.899 Other long term (current) drug therapy; Z96.641 Presence of right artificial hip joint
CPT/HCPCS: 36600; 73502; 80048; 82803; 82962; 83036; 85027; 87081; 88305; 88311; 94002; 94003; 94640; 97162; 97166; 99251; C1776; J7120; G0463; J2405

== ENCOUNTER 2020-12-18 11:53 | Inpatient (IN) | payer MEDICARE, MEDICAID, SELFPAY ==
[2020-12-18 12:21] VITALS: BMI 31.0
[2020-12-18 15:25] VITALS: BP 127/70; PULSE 82; RESP 18; TEMP 37; O2SAT 94
[2020-12-18 16:00] VITALS: PULSE 82; RESP 18; O2SAT 94
[2020-12-18] MEDS: Aspirin 81 MG TAB.CHEW PO (17:46)
[2020-12-18] MEDS: oxyCODONE 5 MG Tablet PO (17:52)
[2020-12-18 19:34] VITALS: BP 121/74; PULSE 59; RESP 16; TEMP 36.9; O2SAT 93
[2020-12-18] MEDS: Ipratropium Bromide 0.06% NASAL SPRAY 2 SPRAY NASAL ×2 (20:35→21:31)
[2020-12-18] MEDS: Acetaminophen 500 MG Tablet 1000 MG PO (21:31)
[2020-12-18] MEDS: Senna/Docusate Sodium 1 Tablet 2 TABLET PO (21:31)
[2020-12-18] MEDS: Meloxicam 7.5 MG Tablet PO (21:31)
[2020-12-19] MEDS: oxyCODONE 5 MG Tablet PO (04:17)
[2020-12-19] MEDS: Acetaminophen 500 MG Tablet 1000 MG PO ×3 (04:32→21:55)
[2020-12-19 05:38] VITALS: O2SAT 94
[2020-12-19] MEDS: Aspirin 81 MG TAB.CHEW PO ×2 (07:42→17:26)
[2020-12-19] MEDS: Famotidine 20 MG Tablet PO (07:43)
[2020-12-19] MEDS: Ipratropium Bromide 0.06% NASAL SPRAY 2 SPRAY NASAL ×2 (07:43→21:54)
[2020-12-19] MEDS: Senna/Docusate Sodium 1 Tablet 2 TABLET PO ×2 (07:43→21:55)
[2020-12-19] MEDS: Meloxicam 7.5 MG Tablet PO ×2 (07:43→21:54)
[2020-12-19 08:29] VITALS: BP 151/88; PULSE 91; RESP 18; TEMP 36.8; O2SAT 94
--- NOTE | 2020-12-19 12:04 | PCM.HP.STD ---
HPI - General General Date of Admission: 12/18/20 Date of Service: 12/19/20 Chief Complaint: Physical debility secondary to left total hip arthroplasty for hip dysplasia HPI Narrative DESTINI COREY, is a 50 M with a past medical history of Apert syndrome, obesity, hip dysplasia, syndactyly and osteoarthritis who is well known to me from recent admission to acute rehab after a R TANISHA. He was discharged from rehab on 12/17 and underwent a L TANISHA. He returned to rehab on 12/18/20 for 3 hours of therapy daily to restore his ability to ambulate safely and return to his prior level of function or better. Lab on the day of DC from the hospital showed an elevated white blood cell count of 14.9. No differential was done. White blood cell count preoperatively was within normal limits with an unremarkable differential and the leukocytosis is most likely secondary to stress/pain. Hemoglobin dropped from 12.1 preoperatively to 10.1 on 12/18/2020. This is likely due to acute blood loss. BMP was unremarkable. He had an elevated random blood sugar postoperatively of 214 but the hemoglobin A1c was 5.2 and the hyperglycemia is most likely due to stress/pain. The discharge instructions from orthopedics were reviewed. He was prescribed aspirin 81 mg p.o. twice daily for 4 weeks by orthopedics for DVT prophylaxis. [facility] Medical History (Updated 12/19/20 @ 16:[address] Camila Worrell, ) Acute blood loss anemia Anxiety Apert's syndrome Back pain Bifascicular block GERD (gastroesophageal reflux disease) H/O corrected congenital abnormality of face Heart abnormality Hip dysplasia, congenital Marijuana use Non-smoker Physical debility Home Medications aspirin 81 mg PO BIDCM 12/04/20 [History Last Taken Unknown] famotidine 20 mg PO DAILY 12/04/20 [History Last Taken 12/17/20 06:30] meloxicam 7.5 mg PO BID 12/04/20 [History Last Taken Unknown] acetaminophen 1,000 mg PO TID #0 tab 12/18/20 [Rx Last Taken Unknown] oxycodone 5 - 10 mg PO Q4H PRN PRN 5 Days #30 tab 12/18/20 [Rx Last Taken Unknown] sennosides-docusate sodium [Stool Softener-Stimulant Laxat] 2 tab PO BID #0 tab 12/18/20 [Rx Last Taken Unknown] Allergy/AdvReac Type Severity Reaction Status Date / Time No Known Allergies Allergy Verified 12/17/20 09:34 Surgical History H/O plastic surgery Hx of foot surgery Hx of hand surgery Hx of total hip arthroplasty Status post right hip replacement Social History adopted: No household members: none number of children: 0 Smoking Status: Never smoker alcohol intake: never substance use type: does not use ROS Constitutional Constitutional: Reports difficulty sleeping and other Details: Kristian tells me that he is having pain that is not adequately controlled in the Left thigh. He describes it as dull and aching. He denies burning pain. Denies pain in the left knee. Eyes Eyes: Denies blurry vision, change in vision, eye pain or loss of vision ENT HEENT: Reports nasal congestion, nasal discharge, post nasal drip and other Details: The rhinitis and post nasal drip and nasal congestion have resolved with the Atrovent nasal spray ordered last evening. ; Denies abnormal hearing, dysphagia, headache(s), hearing loss or sore throat Cardiovascular Cardiovascular: Reports leg edema and other Details: denies calf pain. No paresthesias in the legs or feet. ; Denies chest pain, dyspnea on exertion, edema, lightheadedness, orthopnea, palpitations, paroxysmal nocturnal dyspnea or syncope Respiratory/Chest Respiratory/Chest: Denies cough, dyspnea, shortness of breath at rest, shortness of breath with exertion or wheezing Gastrointestinal Gastrointestinal: Denies abdominal pain, constipation, diarrhea, dyspepsia, hematemesis, hematochezia, nausea or vomiting Genitourinary Genitourinary: Denies dysuria, hematuria, nocturia, urinary frequency, urinary hesitancy, urinary incontinence or urinary urgency Musculoskeletal Musculoskeletal: Denies back pain, joint pain, joint swelling or neck pain Neurologic Neurologic: Reports other Details: he is c/o focal numbness of the top of the tongue. There is a small blister on the tongue and it looks as though he bite his tongue recently. No other lesions. The tongue is moist ; Denies confusion, disequilibrium, dizziness, focal weakness, headache(s), paresthesias, seizures or tremor(s) Psychiatric Psychiatric: Denies anxiety, depression, homicidal ideation or suicidal ideation Endocrine Endocrinology: Denies change in body appearance, polydipsia or polyuria Hematologic/Lymphatic Hematologic/Lymphatic: Denies easy bleeding, easy bruising or lymphadenopathy Allergic/Immunologic Allergic/Immunologic: Reports rhinitis; Denies itchy eyes, eczemia or asthma Vital Signs Vital Signs Vital Signs: 12/18/20 15:25 12/18/20 16:00 12/18/20 19:34 Temperature 98.6 F 98.4 F Temperature Source Oral Oral Pulse Rate 82 82 59 L Respiratory Rate 18 18 16 Respiratory Effort Normal Non-Labored Respiratory Depth Normal Respiratory Pattern Normal Blood Pressure 127/70 H 121/74 H Blood Pressure Mean 89 89 Blood Pressure Source Monitor Monitor Blood Pressure Position Sitting Sitting Blood Pressure Location Right Arm Right Arm Pulse Ox 94 94 93 Oxygen Delivery Method Room Air Room Air Room Air 12/19/20 05:38 12/19/20 08:29 Temperature 98.2 F Temperature Source Oral Pulse Rate 91 Respiratory Rate 18 Respiratory Effort Respiratory Depth Respiratory Pattern Blood Pressure 151/88 H Blood Pressure Mean 109 Blood Pressure Source Monitor Blood Pressure Position Semi-Fowlers Blood Pressure Location Right Arm Pulse Ox 94 94 Oxygen Delivery Method Room Air Room Air Weight Weight: 222 lb 10.67 oz Body Mass Index (BMI) 31.0 Physical Exam Const alert and oriented x3 Constitutional Narrative: Making good eye contact, appropriate. He is having increased pain with therapy today but, he is only POD # 2. The pain is in the Left anterior thigh and is dull and achey......does not sound radicular. General Appearance: cooperative and comfortable HEENT moist oral mucous membranes HEENT Narrative: peaked hard palate with cicatrix on the midline due to previous surgery. Wide set eyes with proptosis. PERRLA. Eyes conjunctivae normal and no scleral icterus Neck no lymphadenopathy, supple, no JVD and no carotid bruits Chest Chest Narrative: Mild pectus excavatum Resp normal respiratory effort, no use of accessory muscles and clear to auscultation bilaterally Resp Narrative: Not tachypneic and no conversational dyspnea. Cardio regular rate, regular rhythm, S1 normal heart sound, S2 normal heart sound, no murmurs, no rub and no gallops GI normal to inspection, nondistended, normoactive bowel sounds and non-tender GI Narrative: No guarding with palpation. Extremity no clubbing, cyanosis or edema Extremity Narrative: Negative Louie's and Sonia's signs. He has syndactyly of the fingers and toes. Scars from prior surgery on his feet. Skin Skin Narrative: No rashes, no skin breakdown. Neuro oriented x3, CN's II-XII intact bilaterally and no focal motor deficits Motor Exam: strength 5/5 throughout Psych affect normal Psych Narrative: Appropriate, making good eye contact. Able to stay on topic and focus. No flight of ideas. Does not appear anxious or depressed. Conversant and relating well to staff. Assessment & Plan Assessment/Plan (1) Physical debility: (2) Hip dysplasia, congenital: (3) Status post left hip replacement: (4) Acute blood loss anemia: (5) GERD (gastroesophageal reflux disease): (6) Heart abnormality: PLAN: PLAN PT for gait stability OT for ADL's Analgesics as needed Bowel protocol Fall precautions Assess for Anxiety/Depression GI prophylaxis with famotidine 20 mg daily DVT prophylaxis with ASA 81 mg p.o. twice daily x4 weeks per orthopedics Follow up with Dr. Salazar and PCP following DC from [facility] Increase the Oxycodone to 10 mg Q4H PRN pain. This is his second THR this month and he is more painful this time and weaker. He was apparently hypoxic in recovery and spent some time in the ICU but was still transferred to rehab on POD #1. May need to go more slowly with rehab for the first few days. Charges/Coding Visit Charges Inpatient E&M: 70328 Init Hosp L2
--- NOTE | 2020-12-19 15:53 | REHABEVAL_ITS ---
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 Potential Problem List:: DVT, Bleeding, Infection, UTI, Aspiration, Falls, Skin Integrity and Depression Risk of Complications DVT: KERWIN Morales and - (ASA 81 mg p.o. twice daily x4 weeks per orthopedics) Bleeding: Monitor Lab Values, Nursing to Teach Precautions for anti-coagulation therapy., Wound, if applicable, to be assessed every shift. and Stroke patients assessed for lethargy or change in status. Infection: Clinical Staff to Monitor for S/S of infection: and S/S of infection include fever, redness, warmth, etc. Urinary Tract Infection: Monitor for frequency, burning, discomfort, or incontinence. and Nursing will obtain urine sample for urinalysis and C&S when ordered. Aspiration: Clinical staff will monitor for coughing, drooling, congestion., Speech will evaluate swallowing and dsyphasia. and Nursing will monitor patient swallowing during meals. Falls: Patient will be evaluated for Fall Precautions and Patient will be placed on Fall Precautions as indicated per protocol. Skin Breakdown: Nursing will assess skin daily using assessment tool. and Nursing will place on Skin Breakdown Precautions as indicated. Pain: Clinical staff will assess patient's pain level per protocol., Medications will be given, if needed, and the pain level reassessed. and Other methods: Massage, distraction, decrease stimulus, etc. used PRN. Plan of Care Patient requires physician specializing in physical medicine and rehab oversight to provide close medical supervision of rehab issues including: Pain Management, Sleep Problems, Bowel and Bladder, Medical and co-morbidity Management, DVT prophylaxis, Rehabilitation Leadership and Coordination of treatment team Patient needs Physical Therapy: For a minimum of 1 hour and At least 5 out of 7 days Patient needs Physical Therapy to improve:: Mobility, Strengthening, Transfers, Stretching, ROM, Endurance, Stairs, Gait and Balance Patient needs Occupational Therapy: For a minimum of 1 hour and At least 5 out of 7 days Patient needs Occupational Therapy to improve ADL's incl.: Eating, Grooming, Bathing, Dressing, Toileting, Toilet transfers, Community Reintegration, Higher functioning activities, Household tasks, Adaptive Equipment, Splinting and Other activities as determined Patient requires 13/09 Rehabilitation Nursing for: Pain Issues, Identifying and preventing risk factors, Monitoring and reporting current medical conditions, Assisting with ambulation, transfer, and all ADL's, Teaching patients about disease process and medications, Family teaching, Providing safe environment, Bowel and Bladder Issues, Skin integrity and Medication Management Patient needs Handmade Tile Artist/ Case Management for: Discharge Planning, Arranging Home Equipment or Services and Family Interventions Patient needs Dietary and Nutrition Services for: Adequate Nutrition, Nutritional Supplements and Nutritional Education Goals Patient will remain: free from falls and or injury at time of discharge. Patient will perform bed mobility at: MOD I level of assist. Patient will complete transfers from bed to chair at: MOD I level of assist. Patient will ambulate: with LRD and - (450 feet with the least restrictive device on various surfaces at mod I.) Patient will complete upper body dressing at: MOD I level of assist. Patient will complete lower body dressing at: MOD I level of assist. Patient will complete toileting at: MOD I level of assist. Patient will perform bathing at: MOD I level of assist. Patient will complete grooming at: MOD I level of assist. Patient will complete home management skills at: MOD I level of assist. Patient will achieve: 12 stairs (With 2 handrails at standby assist) and - (1 curb step) Patient will have pain level of: of 3 or less Patient's skin will: remain intact Patient will receive: adequate nutrition. Discharge Planning Pt Prognosis for Sig. Practical Improv. w/in Reasonable Time: Good Estimated Length of stay (days): 14 Anticipated D/C Destination: Home with Outpt Therapy (will be going to his mother's house) Was Preadmission Assessment Accurate?: Yes
[2020-12-19 20:22] VITALS: BP 135/78; PULSE 80; RESP 16; TEMP 36.7; O2SAT 98
--- NOTE | 2020-12-20 03:18 | NURSING ---
Reviewed and agree with ENVIRONMENTAL ANALYST assessment.
[2020-12-20] MEDS: Acetaminophen 500 MG Tablet 1000 MG PO ×3 (06:02→21:07)
[2020-12-20 08:23] VITALS: BP 140/88; PULSE 75; RESP 16; TEMP 36.9; O2SAT 94
[2020-12-20] MEDS: oxyCODONE 5 MG Tablet 10 MG PO (11:02)
[2020-12-20] MEDS: Ipratropium Bromide 0.06% NASAL SPRAY 2 SPRAY NASAL ×2 (11:03→21:05)
[2020-12-20] MEDS: Aspirin 81 MG TAB.CHEW PO ×2 (11:03→16:33)
[2020-12-20] MEDS: Famotidine 20 MG Tablet PO (11:04)
[2020-12-20] MEDS: Meloxicam 7.5 MG Tablet PO ×2 (11:04→21:06)
[2020-12-20] MEDS: Senna/Docusate Sodium 1 Tablet 2 TABLET PO ×2 (11:05→21:06)
[2020-12-20 19:19] VITALS: BP 124/79; PULSE 75; RESP 18; TEMP 36.7; O2SAT 95
[2020-12-21] MEDS: Acetaminophen 500 MG Tablet 1000 MG PO ×3 (05:29→21:23)
[2020-12-21 07:09] VITALS: BP 150/98; PULSE 81; RESP 16; TEMP 36.9; O2SAT 95
[2020-12-21] MEDS: oxyCODONE 5 MG Tablet 10 MG PO ×2 (08:37→13:17)
[2020-12-21] MEDS: Ipratropium Bromide 0.06% NASAL SPRAY 2 SPRAY NASAL ×2 (08:37→21:23)
[2020-12-21] MEDS: Meloxicam 7.5 MG Tablet PO ×2 (08:38→21:23)
[2020-12-21] MEDS: Famotidine 20 MG Tablet PO (08:38)
[2020-12-21] MEDS: Aspirin 81 MG TAB.CHEW PO ×2 (08:38→16:32)
[2020-12-21 19:29] VITALS: BP 144/91; PULSE 75; RESP 18; TEMP 36.7; O2SAT 98
[2020-12-21] MEDS: Senna/Docusate Sodium 1 Tablet 2 TABLET PO (21:24)
[2020-12-22] MEDS: Acetaminophen 500 MG Tablet 1000 MG PO ×3 (05:51→21:07)
[2020-12-22 07:41] VITALS: BP 123/89; PULSE 72; RESP 16; TEMP 36.6; O2SAT 100
[2020-12-22] MEDS: oxyCODONE 5 MG Tablet 10 MG PO (07:46)
[2020-12-22] MEDS: Ipratropium Bromide 0.06% NASAL SPRAY 2 SPRAY NASAL ×2 (07:47→21:07)
[2020-12-22] MEDS: Aspirin 81 MG TAB.CHEW PO ×2 (07:47→17:20)
[2020-12-22] MEDS: Famotidine 20 MG Tablet PO (07:47)
[2020-12-22] MEDS: Meloxicam 7.5 MG Tablet PO ×2 (07:47→21:07)
[2020-12-22] MEDS: Senna/Docusate Sodium 1 Tablet 2 TABLET PO ×2 (07:48→21:07)
[2020-12-22 09:18] VITALS: O2SAT 94
--- NOTE | 2020-12-22 11:55 | PCM.PN.BLA ---
Progress Note And he was seen on team rounds today. His mother had to work but I filled her in later in the evening when she visited. Afebrile VSS - the majority of blood pressures are still mildly above goal. Kristian admitted that he gets anxious at times and he notices when this happens his BP goes up. there is also a FH of HTN in his fathers side of the family. Maintaining appropriate oxygen saturation on RA Oral intake is good Discussed with nursing - no problems that need addressed Reviewed the PT/OT notes Medication list reviewed. Physical Exam Const alert, oriented x3 and no apparent distress Constitutional Narrative: Good mood, maintaining good eye contact. Talkative. Admits to getting anxious with the NA when she could not get him in the shower when he wanted at 6:30 AM. General Appearance: cooperative, comfortable and well kempt Resp normal respiratory effort, normal air movement and clear to auscultation bilaterally Cardio regular rate, regular rhythm, no murmurs and no gallops GI normal to inspection, nondistended, normoactive bowel sounds, soft to palpation and non-tender Extremity no calf tenderness Skin Rashes: no rashes Assessment & Plan Assessment/Plan (1) Physical debility: (2) Status post left hip replacement: (3) Acute blood loss anemia: (4) Apert's syndrome: (5) HTN (hypertension): PLAN: 1. recheck a CBC without diff in the AM 2. start lisinopril 2.5 mg p.o. daily today 3. Continue therapy 4. He is on Meloxicam and ASa 81 mg BID.......monitor closely for onset epigastric pain, dark stool, nausea, decreased appetite Visit Charges Inpatient E&M: 20558 Subs Hosp L2
[2020-12-22] MEDS: Lisinopril 2.5 MG Tablet PO (14:15)
--- NOTE | 2020-12-22 15:24 | CASEMGMT ---
Addendum entered by Veronica Vale 12/22/20 16:04: Updated pt that Medicare approved 12 days with EDC 01/01 Original Note: Social Work IDT met with patient for Team meeting. Discussed patient's progress in therapy and nursing. Pt progressing well. The goal is to return to apartment alone. Friend brought in advanced directives - Di, is named a HCPOA. Paperwork was completed in 2010. Confirmed with pt this has not changed - pt agreed. Pt stated his mother does not know he has advanced directives and someone else is named as HCPOA and would like to keep it that way. Agreed to confidentiality, however, explained if something were to happen to the pt and POA was invoked and the mother would assume she was it, staff would need to educate her that there is another person named as HCPOA. Pt expressed understanding. Explained Medicare benefit and will get new LOS. SW to provide that information to pt when available. Will ReTeam. Will continue to follow. Veronica Vale, KELI OCC MED PHYSICIAN
[2020-12-22 21:00] VITALS: BP 144/81; PULSE 81; RESP 18; TEMP 36.6; O2SAT 95
[2020-12-23] MEDS: Acetaminophen 500 MG Tablet 1000 MG PO ×3 (05:00→20:18)
[2020-12-23 06:01] LABS: Hematocrit 34.6 % (40-54); Hemoglobin 10.7 g/dL (13.0-16.5); Mean Corp Hgb Conc 30.9 g/dL (32-36); Mean Corpuscular Hgb 28.5 pg (27.0-32.0); Mean Platelet Vol. 8.6 fl (6.2-12.0); Platelet Count 532 K/mm3 (150-450); RBC Distribution Width CV 13.6 % (11.6-14.6); RBC Distribution Width SD 44.8 fl (35.1-43.9); Red Blood Count 3.76 M/mm3 (4.6-6.2); White Blood Count 6.1 K/mm3 (4.4-11.0)
[2020-12-23 07:30] VITALS: BP 143/87; PULSE 72; RESP 18; TEMP 36.7; O2SAT 97
[2020-12-23] MEDS: Meloxicam 7.5 MG Tablet PO ×2 (07:49→20:18)
[2020-12-23] MEDS: Famotidine 20 MG Tablet PO (07:49)
[2020-12-23] MEDS: Ipratropium Bromide 0.06% NASAL SPRAY 2 SPRAY NASAL ×2 (07:49→20:18)
[2020-12-23] MEDS: Senna/Docusate Sodium 1 Tablet 2 TABLET PO ×2 (07:49→20:19)
[2020-12-23] MEDS: Lisinopril 2.5 MG Tablet PO (07:49)
[2020-12-23] MEDS: Aspirin 81 MG TAB.CHEW PO ×2 (07:49→16:39)
[2020-12-23] MEDS: oxyCODONE 5 MG Tablet 10 MG PO ×2 (07:51→18:36)
[2020-12-23 13:56] VITALS: O2SAT 96
--- NOTE | 2020-12-23 17:11 | PCM.PN.BLA ---
Progress Note Afebrile VSS - BP this AM still mildly increased. He was started on Lisinopril 2.5 mg only yesterday. HR is WNL. Maintaining appropriate oxygen saturation on RA Oral intake is good Discussed with nursing - no problems that need addressed Reviewed the PT/OT/ST notes Medication list reviewed. All lab was personally reviewed. Hemoglobin today is 10.7 and stable. Platelets are mildly increased which may be due to inflammation. ENT denies chest pain, hemoptysis, shortness of breath, palpitations, calf pain, lightheadedness. He states his pain is adequately controlled and he is sleeping well. Physical Exam Const alert, oriented x3 and no apparent distress Resp clear to auscultation bilaterally Cardio regular rate, regular rhythm, no murmurs and no gallops GI normal to inspection, nondistended, normoactive bowel sounds, soft to palpation and non-tender Extremity no calf tenderness Skin Skin Narrative: the incisions are intact. Jacob are still in the left hip. No erythema and no purulent DC. No dehiscence in the R TANISHA incision. Assessment & Plan Assessment/Plan (1) Status post left hip replacement: (2) Physical debility: PLAN: 1. continue therapy. 2. Lisinopril added for persistent mild HTN. No cough. will continue to monitor the BP's. Visit Charges Inpatient E&M: 45248 Subs Hosp L2
[2020-12-23 20:20] VITALS: BP 109/69; PULSE 69; RESP 16; TEMP 36.3; O2SAT 97
[2020-12-24] MEDS: Acetaminophen 500 MG Tablet 1000 MG PO ×3 (05:49→22:05)
[2020-12-24 07:32] VITALS: BP 117/71; PULSE 68; RESP 17; TEMP 36.1; O2SAT 96
[2020-12-24] MEDS: Lisinopril 2.5 MG Tablet PO (08:36)
[2020-12-24] MEDS: Ipratropium Bromide 0.06% NASAL SPRAY 2 SPRAY NASAL ×2 (08:36→22:06)
[2020-12-24] MEDS: Aspirin 81 MG TAB.CHEW PO ×2 (08:36→17:52)
[2020-12-24] MEDS: Famotidine 20 MG Tablet PO (08:36)
[2020-12-24] MEDS: Senna/Docusate Sodium 1 Tablet 2 TABLET PO (08:36)
[2020-12-24] MEDS: Meloxicam 7.5 MG Tablet PO ×2 (08:36→22:06)
[2020-12-24] MEDS: oxyCODONE 5 MG Tablet 10 MG PO ×2 (08:42→17:57)
[2020-12-24 19:41] VITALS: BP 132/86; PULSE 64; RESP 18; TEMP 36.7; O2SAT 96
--- NOTE | 2020-12-25 03:17 | NURSING ---
REVIEWED AND AGREE WITH [employer] SALES AND LENDING TEAM MEMBER ASSESSMENT.
[2020-12-25] MEDS: Acetaminophen 500 MG Tablet 1000 MG PO ×3 (05:33→21:38)
[2020-12-25 07:52] VITALS: BP 118/76; PULSE 68; RESP 17; TEMP 36.3; O2SAT 96
[2020-12-25] MEDS: Meloxicam 7.5 MG Tablet PO ×2 (07:54→21:38)
[2020-12-25] MEDS: Aspirin 81 MG TAB.CHEW PO ×2 (07:54→16:13)
[2020-12-25] MEDS: Ipratropium Bromide 0.06% NASAL SPRAY 2 SPRAY NASAL ×2 (07:54→21:38)
[2020-12-25] MEDS: Senna/Docusate Sodium 1 Tablet 2 TABLET PO ×2 (07:54→21:38)
[2020-12-25] MEDS: Lisinopril 2.5 MG Tablet PO (07:54)
[2020-12-25] MEDS: Famotidine 20 MG Tablet PO (07:54)
[2020-12-25] MEDS: oxyCODONE 5 MG Tablet 10 MG PO (07:58)
[2020-12-25 08:39] VITALS: PULSE 74; RESP 18; O2SAT 98
--- NOTE | 2020-12-25 11:04 | PCM.DC.SUM ---
Providers Date of Admission: 12/04/20 Primary Care Physician: Dr. 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 Salazar and he will return to rehab when ready. Medications at Discharge Home Medications aspirin 81 mg PO BIDCM 12/04/20 famotidine 20 mg PO DAILY 12/04/20 meloxicam 7.5 mg PO BID 12/04/20 acetaminophen 1,000 mg PO TID #0 tab 12/18/20 oxycodone 5 - 10 mg PO Q4H PRN PRN 5 Days #30 tab 12/18/20 sennosides-docusate sodium [Stool Softener-Stimulant Laxat] 2 tab PO BID #0 tab 12/18/20 Hospital Course Operations total hip replacement (R hip TANISHA by Dr. Salazar prior to transfer to the rehab unit) Procedures None Summary of Care Provided Minutes Spent on Discharge: 30 Hospital Course: Kristian Rojo is a 50 YO M with a PMH of Apert's S. and congenital BL hip dysplasia who underwent a right total hip arthroplasty on 12/03/[address] Buddy Salazar. And he was transferred to the acute rehab floor at [facility] on 12/04/2020 for 3 hours of therapy daily to restore function at or better than prior to the hip replacement. He is scheduled for a left total hip arthroplasty on 12/17/2020 and this will also be done by Dr. Salazar. Kristian will return to the acute rehab unit on the first postoperative day for continued therapy to restore function/independence at or better than prior to the BL TANISHA. Physical Exam Const alert and oriented x3 General Appearance: cooperative HEENT head/scalp atraumatic Eyes PERRL Neck supple Resp normal respiratory effort and clear to auscultation bilaterally Cardio regular rate, regular rhythm, no murmurs, no rub and no gallops GI normal to inspection, nondistended, normoactive bowel sounds Extremity no calf tenderness General Extremity: edema right (mild. KERWIN hose in place); Negative for clubbing or cyanosis Skin Rashes: no rashes Psych affect normal Weight / BMI Weight Weight: 222 lb 10.67 oz Body Mass Index (BMI) 31.0 ABG / Lab / Microbiology Data Result Diagrams: 12/23/20 05:37 Meaningful Use Info Meaningful Use Diagnoses (Choose all that apply): None applicable Discharge Plan Admission Admit Date/Time: 12/18/20 11:53 Attending Provider: Camila Worrell Primary Care Provider: Last Sommer Discharge Orders/Prescriptions Prescriptions: No Action oxycodone 5 mg Tablet 5 - 10 mg PO Q4H PRN PRN (Reason: Pain Score 4-10) 5 Days Qty: 30 RF: 0 sennosides-docusate sodium [Stool Softener-Stimulant Laxat] 8.6-50 mg tablet 2 tab PO BID Qty: 0 RF: 0 acetaminophen 500 mg tablet 1,000 mg PO TID Qty: 0 RF: 0 meloxicam 7.5 mg tablet 7.5 mg PO BID RF: 0 famotidine 20 mg tablet 20 mg PO DAILY RF: 0 aspirin 81 mg tablet,chewable 81 mg PO BIDCM RF: 0 Referrals / Follow Up: Last Sommer MD [Primary Care Provider] - Charges/Coding Visit Charges Inpatient E&M: 78211 Disch Hosp
[2020-12-25 19:22] VITALS: BP 114/69; PULSE 72; RESP 18; TEMP 36.6; O2SAT 97
[2020-12-26] MEDS: oxyCODONE 5 MG Tablet 10 MG PO (03:43)
[2020-12-26] MEDS: Acetaminophen 500 MG Tablet 1000 MG PO ×3 (06:00→21:33)
--- NOTE | 2020-12-26 07:13 | NURSING ---
REVIEWED AND AGREE WITH [employer]ODU[employer] OPERATOR'S FUNCTIONAL ASSESSMENT AND HANDOFF CHARTING.
[2020-12-26 07:39] VITALS: BP 128/82; PULSE 72; RESP 18; TEMP 36.5; O2SAT 96
[2020-12-26] MEDS: Ipratropium Bromide 0.06% NASAL SPRAY 2 SPRAY NASAL ×2 (09:16→21:34)
[2020-12-26] MEDS: Aspirin 81 MG TAB.CHEW PO ×2 (09:17→16:47)
[2020-12-26] MEDS: Lisinopril 2.5 MG Tablet PO (09:17)
[2020-12-26] MEDS: Senna/Docusate Sodium 1 Tablet 2 TABLET PO ×2 (09:17→21:34)
[2020-12-26] MEDS: Famotidine 20 MG Tablet PO (09:17)
[2020-12-26] MEDS: Meloxicam 7.5 MG Tablet PO ×2 (09:17→21:33)
--- NOTE | 2020-12-26 13:47 | CASEMGMT ---
Social Work Provide [facility] resources to pt, per physician request. KELI TillmanW
[2020-12-26 21:30] VITALS: PULSE 72; RESP 14; O2SAT 100
[2020-12-26 21:39] VITALS: BP 100/58; PULSE 72; RESP 14; TEMP 36.8; O2SAT 100
--- NOTE | 2020-12-27 02:44 | NURSING ---
REVIEWED AND AGREE WITH PLANT ELECTRICAL ENGINEER'S FUNCTIONAL ASSESSMENT AND HANDOFF CHARTING.
[2020-12-27] MEDS: Acetaminophen 500 MG Tablet 1000 MG PO ×3 (06:42→20:48)
[2020-12-27 07:35] VITALS: BP 127/68; PULSE 73; RESP 18; TEMP 36.3; O2SAT 94
[2020-12-27] MEDS: Meloxicam 7.5 MG Tablet PO ×2 (08:22→20:48)
[2020-12-27] MEDS: Aspirin 81 MG TAB.CHEW PO ×2 (08:22→16:49)
[2020-12-27] MEDS: Famotidine 20 MG Tablet PO (08:22)
[2020-12-27] MEDS: Ipratropium Bromide 0.06% NASAL SPRAY 2 SPRAY NASAL ×2 (08:23→20:49)
[2020-12-27] MEDS: Lisinopril 2.5 MG Tablet PO (08:23)
[2020-12-27 20:15] VITALS: PULSE 61; RESP 18; O2SAT 99
[2020-12-27 20:45] VITALS: BP 117/60; PULSE 61; RESP 18; TEMP 36.4; O2SAT 99
--- NOTE | 2020-12-28 02:14 | NURSING ---
Reviewed and agree with RIVET HAMMER MACHINE OPERATOR charting and assessment.
[2020-12-28] MEDS: Acetaminophen 500 MG Tablet 1000 MG PO ×3 (06:17→20:51)
[2020-12-28] MEDS: Ipratropium Bromide 0.06% NASAL SPRAY 2 SPRAY NASAL ×2 (08:07→20:52)
[2020-12-28] MEDS: Aspirin 81 MG TAB.CHEW PO ×2 (08:07→16:57)
[2020-12-28] MEDS: Famotidine 20 MG Tablet PO (08:07)
[2020-12-28] MEDS: Meloxicam 7.5 MG Tablet PO ×2 (08:08→20:51)
[2020-12-28] MEDS: Lisinopril 2.5 MG Tablet PO (08:09)
[2020-12-28 09:41] VITALS: BP 117/68; PULSE 72; RESP 18; TEMP 36.7; O2SAT 95
[2020-12-28 20:50] VITALS: BP 115/62; PULSE 64; RESP 16; TEMP 36.4; O2SAT 97
--- NOTE | 2020-12-29 00:30 | NURSING ---
Reviewed and agree with BREAKER OPERATOR assessment and note.
[2020-12-29] MEDS: Acetaminophen 500 MG Tablet 1000 MG PO ×3 (05:17→21:42)
[2020-12-29 07:42] VITALS: BP 147/86; PULSE 80; RESP 16; TEMP 36.6; O2SAT 96
[2020-12-29] MEDS: Ipratropium Bromide 0.06% NASAL SPRAY 2 SPRAY NASAL ×2 (08:26→21:42)
[2020-12-29] MEDS: Lisinopril 2.5 MG Tablet PO (08:26)
[2020-12-29] MEDS: Aspirin 81 MG TAB.CHEW PO ×2 (08:27→17:17)
[2020-12-29] MEDS: Famotidine 20 MG Tablet PO (08:27)
[2020-12-29] MEDS: Senna/Docusate Sodium 1 Tablet 2 TABLET PO (08:27)
[2020-12-29] MEDS: Meloxicam 7.5 MG Tablet PO ×2 (08:27→21:42)
--- NOTE | 2020-12-29 14:12 | CASEMGMT ---
Addendum entered by Veronica Vale 12/31/20 12:47: Spoke with Marketing and they cannot take pt's to [facility], only [facility]. Spoke with pt about above - pt would like to change to [facility] PT since he does not have another option for transport. Did provide pt with [employer] and other transportation resources. Cancelled PT order at [facility]. Referral made to [facility] PT. Original Note: Social Work IDT met with patient and mother for Team meeting. Discussed patient's progress in therapy and nursing. Pt progressing well. Medicare DC date 01/01. IDT and pt agreeable. Pt to DC home alone. Pt requesting [facility] outpatient PT, however, mother may not be able to transport each appt. Explained [facility]. Pt agreeable. SW to have [facility] coordinate appts with [facility]. Pt requesting 3-in-1 commode. Referred to [facility]. Mother to transport home. Plan: DC home alone 01/01, [facility], [facility] Veronica Vale, SHIPFITTER HELPER SURVEILLANCE OBSERVER
--- NOTE | 2020-12-29 16:29 | PCM.PN.BLA ---
Progress Note And he was seen on team rounds. His mother was present in the room for rounds. Afebrile VSS-blood pressure was high at 147/86 today but that is the exception. Maintaining appropriate oxygen saturation on RA Oral intake is good Discussed with nursing - no problems that need addressed Reviewed the PT/OT notes Medication list reviewed. He has not taken any oxycodone since 12/26/2020. Kristian is doing very well in therapy. He is able to shower and do all his ADL's in the morning at supervision/SBA. He is walking with a FWW on various surfaces with no LOB. The walker got caught on a rug and he required min assist from the SAP PAYROLL CONSULTANT to get the WW over the rug. He has been practising curb steps at various heights. Kristian denies pain. He had a dry cough one night and wondered if this was an adverse reaction to the Lisinopril but, it happened only once and I told him if was due to the CARLO it would be more frequent. He denies SOB. No calf pain. Physical Exam Const alert, oriented x3 and no apparent distress General Appearance: cooperative and comfortable HEENT HEENT Narrative: Mucous membranes are moist Resp normal respiratory effort, normal air movement and clear to auscultation bilaterally Effort and Inspection: able to speak in complete sentences Cardio regular rate, regular rhythm and no gallops GI normal to inspection, nondistended, normoactive bowel sounds, soft to palpation and non-tender Extremity no calf tenderness Extremity Narrative: He has a very hard time with the KERWIN hose and does not know if he will be able to do this at home by himself. We can give him options prior to DC but, he is ambulating well now and will be more active than he ws previously at home so he may not need to wear the TEDS. He will stay on ASA 81 mg BID for a full month before discontinuing. Skin General Skin Exam: no breakdown Rashes: no rashes Wound Narrative: incisions are intact with no dehiscence and no erythema or DC. Dr. Salazar will see Kristian on the day he is discharged from rehab to take the osbaldo out. Psych mental status grossly normal, thought process normal and cooperative Assessment & Plan Assessment/Plan (1) Hx of total hip arthroplasty: (2) HTN (hypertension): (3) Physical debility: (4) Acute blood loss anemia: PLAN: 1. Continue therapy 2. Need to work on ascending/descending a std size curb better so that he can be mobile in the community. 3. Recheck a CBC and a BMP in the AM 4. DC by 11 AM so that he will be able to make his appt with Dr. Salazar. Kristian would like to get his prescriptions from the [facility] retail pharmacy Visit Charges Inpatient E&M: 21262 Subs Hosp L2
[2020-12-29 22:00] VITALS: BP 125/76; PULSE 68; RESP 16; TEMP 36.8; O2SAT 95
[2020-12-30] MEDS: Acetaminophen 500 MG Tablet 1000 MG PO ×3 (05:47→21:14)
[2020-12-30 07:30] VITALS: BP 138/78; PULSE 76; RESP 16; TEMP 36.6; O2SAT 97
[2020-12-30] MEDS: Aspirin 81 MG TAB.CHEW PO ×2 (07:41→16:47)
[2020-12-30] MEDS: Senna/Docusate Sodium 1 Tablet 2 TABLET PO (07:41)
[2020-12-30] MEDS: Meloxicam 7.5 MG Tablet PO ×2 (07:41→21:15)
[2020-12-30] MEDS: Ipratropium Bromide 0.06% NASAL SPRAY 2 SPRAY NASAL ×2 (07:41→21:14)
[2020-12-30] MEDS: Famotidine 20 MG Tablet PO (07:41)
[2020-12-30] MEDS: Lisinopril 2.5 MG Tablet PO (07:42)
[2020-12-30 08:18] LABS: Hematocrit 35.1 % (40-54); Hemoglobin 11.4 g/dL (13.0-16.5); Mean Corp Hgb Conc 32.5 g/dL (32-36); Mean Corpuscular Hgb 29.3 pg (27.0-32.0); Mean Corpuscular Volume 90.2 fL (80-94); Mean Platelet Vol. 8.4 fl (6.2-12.0); Platelet Count 485 K/mm3 (150-450); RBC Distribution Width CV 14.3 % (11.6-14.6); RBC Distribution Width SD 45.9 fl (35.1-43.9); Red Blood Count 3.89 M/mm3 (4.6-6.2)
[2020-12-30 08:36] LABS: Anion Gap 4 (5-15); BUN 17 mg/dL (7-18); BUN/Creat Ratio 22.2 RATIO (10-20); Calcium,Total 9.3 mg/dL (8.5-10.1); Chloride 107 mmol/L (98-107); Creatinine, Serum 0.77 mg/dL (0.70-1.30); EST Glomerular Filtration Rate 114 mL/min (>60); Est Glom Filt Rate - Afr Amer 138 mL/min (>60); Estimated Creatinine Clearance 122.24 ml/min; Glucose 119 mg/dL (74-106); Potassium 4.3 mmol/L (3.5-5.1); Sodium Level 140 mmol/L (136-145)
[2020-12-30 22:00] VITALS: BP 116/76; PULSE 71; RESP 18; TEMP 36.3; O2SAT 100
[2020-12-30 23:58] VITALS: PULSE 71; RESP 12; O2SAT 98
[2020-12-31] MEDS: Acetaminophen 500 MG Tablet 1000 MG PO ×3 (04:53→21:53)
[2020-12-31 08:02] VITALS: BP 137/92; PULSE 95; RESP 18; TEMP 36.6; O2SAT 95
[2020-12-31] MEDS: Famotidine 20 MG Tablet PO (08:42)
[2020-12-31] MEDS: Ipratropium Bromide 0.06% NASAL SPRAY 2 SPRAY NASAL ×2 (08:42→21:54)
[2020-12-31] MEDS: Meloxicam 7.5 MG Tablet PO ×2 (08:42→21:54)
[2020-12-31] MEDS: Aspirin 81 MG TAB.CHEW PO ×2 (08:42→16:32)
[2020-12-31] MEDS: Senna/Docusate Sodium 1 Tablet 2 TABLET PO (08:42)
[2020-12-31] MEDS: Lisinopril 2.5 MG Tablet PO (08:43)
--- NOTE | 2020-12-31 12:04 | PCM.PN.BLA ---
Progress Note Afebrile VSS - BP has been coming down with the addition of the Lisinopril to the drug regimen. No cough. Maintaining appropriate oxygen saturation on RA Oral intake is good Discussed with nursing - no problems that need addressed Reviewed the PT/OT notes Medication list reviewed. Kristian has no complaints today. He denies cough, shortness of breath, rhinitis, sore throat, chest pain, palpitations, dysuria, diarrhea, constipation, nausea and vomiting. Pain is adequately controlled with Tylenol. Physical Exam Const alert, oriented x3 and no apparent distress General Appearance: cooperative, comfortable and well kempt HEENT moist oral mucous membranes and oropharynx normal Eyes conjunctivae normal and no scleral icterus Resp normal respiratory effort and clear to auscultation bilaterally Effort and Inspection: able to speak in complete sentences Cardio regular rate, regular rhythm, no murmurs and no gallops GI normal to inspection, nondistended, normoactive bowel sounds, soft to palpation and non-tender Extremity no calf tenderness Extremity Narrative: trace ankle edema BL. KERWIN hose in place. Skin General Skin Exam: no breakdown Rashes: no rashes Wound Narrative: The incisions are healing and there is no erythema and no purulent DC. The osbaldo will be removed at Dr. Salazar's office tomorrow from the left hip incision. Psych mental status grossly normal, thought process normal, cooperative and affect normal Assessment & Plan Assessment/Plan (1) Status post total hip replacement, right: (2) Status post left hip replacement: (3) HTN (hypertension): PLAN: No adverse reactions to Lisinopril and the BP has come down . BP is the AM s still mildly increased but, has come down. (4) Physical debility: PLAN: DC home tomorrow and will have OP PT at [facility] (5) Acute blood loss anemia: PLAN: HGB is now up to 11.4. Visit Charges Inpatient E&M: 02512 Subs Hosp L2
--- NOTE | 2020-12-31 12:05 | DCINST_ITS ---
Discharge Instructions Follow Up Care Please Follow Up With: [facility] Test Results: Test results from this visit will be discussed in further detail at your follow-up appointment, if applicable. Discharge Plan Admission Admit Date/Time: 12/18/20 11:53 Primary Reason for Your Visit: Debility secondary to left total hip arthroplasty Attending Provider: Camila Worrell Primary Care Provider: Last Sommer Instructions Additional Instructions / Restrictions: 1. Your BP is now controlled with a small dose of Lisinopril which you will take once a day. The side effects of this drug is a daily dry cough and swelling of the lips and tongue that can happen anytime. If you have swelling of the lips and tongue go to the ER. Do not stop the Lisinopril without talking to Dr. Sommer. If you are allergic he can prescribe another drug for you to control the BP. 2. I gave you some Oxycodone to have at home in case you need it. You will be more active at home because you will be cooking and walking more and sometimes the pain at the end of the day is worse. You will not get addicted Kristian, I know you only take it when the pain is bad. 3. Hip precautions: a. No flexing of the hip greater than 90 degrees b. Do not cross your legs c. No twisting 4. DO NOT use alcohol with narcotic pain medication. DO NOT make important decisions while taking narcotic medication. Do not drive while taking narcotic medication. If you have problems while taking your medication (rash, itching, nausea etc.) call your primary care doctor. 5. It has been a pleasure getting to know you Kristian. The staff and I sure appreciate your good humor and cooperation. If you need our services in the future we will welcome you back with open arms. Take care of yourself. If you have any questions after you leave the rehab unit please do not hesitate to call me. Office [phone] Discharge Orders/Prescriptions Prescriptions: New ipratropium bromide 42 mcg (0.06 %) [place],Non-Aerosol 2 spray NASAL BID Qty: 1 RF: 0 lisinopril 2.5 mg Tablet 2.5 mg PO DAILY Qty: 30 RF: 0 Continued meloxicam 7.5 mg tablet 7.5 mg PO BID Qty: 60 RF: 0 famotidine 20 mg tablet 20 mg PO DAILY Qty: 30 RF: 0 aspirin 81 mg tablet,chewable 81 mg PO BIDCM Qty: 0 RF: 0 oxycodone 5 mg Tablet 5 - 10 mg PO Q4H PRN PRN (Reason: Pain Score 4-10) 5 Days Qty: 30 RF: 0 Changed acetaminophen 500 mg tablet 1,000 mg PO TID PRN PRN (Reason: fever or pain) Qty: 1 RF: 0 Discontinued sennosides-docusate sodium [Stool Softener-Stimulant Laxat] 8.6-50 mg tablet 2 tab PO BID Qty: 0 RF: 0 Referrals / Follow Up: Last Sommer MD [Primary Care Provider] - Disposition Disposition (needs filled in before D/C Order can be placed): Home, Self Care
[2020-12-31 19:32] VITALS: BP 126/79; PULSE 76; RESP 16; TEMP 36.5; O2SAT 96
[2021-01-01] MEDS: Acetaminophen 500 MG Tablet 1000 MG PO (05:18)
[2021-01-01 07:55] VITALS: BP 116/71; PULSE 62; RESP 12; TEMP 36.6; O2SAT 93
[2021-01-01] MEDS: Ipratropium Bromide 0.06% NASAL SPRAY 2 SPRAY NASAL (08:00)
[2021-01-01] MEDS: Famotidine 20 MG Tablet PO (08:01)
[2021-01-01] MEDS: Senna/Docusate Sodium 1 Tablet 2 TABLET PO (08:01)
[2021-01-01] MEDS: Meloxicam 7.5 MG Tablet PO (08:01)
[2021-01-01] MEDS: Lisinopril 2.5 MG Tablet PO (08:01)
[2021-01-01] MEDS: Aspirin 81 MG TAB.CHEW PO (08:01)
--- NOTE | 2021-01-01 10:53 | PCM.DC.SUM ---
Providers Date of Admission: 12/18/20 Date of Discharge: 01/01/21 Primary Care Physician: Dr. Last Sommer MD Reason For Visit: LEFT HIP FRACTURE Diagnosis Discharge Diagnosis (1) Physical debility: Status: Acute Code(s): R53.81 - Other malaise (2) Status post total hip replacement, right: Status: Acute Code(s): Z96.641 - Presence of right artificial hip joint (3) Status post left hip replacement: Status: Acute Code(s): Z96.642 - Presence of left artificial hip joint (4) Acute blood loss anemia: Status: Acute Code(s): D62 - Acute posthemorrhagic anemia (5) HTN (hypertension): Status: Chronic Code(s): I10 - Essential (primary) hypertension (6) Apert's syndrome: Status: Acute Code(s): Q87.0 - Congenital malformation syndromes predominantly affecting facial appearance (7) Hip dysplasia, congenital: Status: Chronic Code(s): Q65.89 - Other specified congenital deformities of hip (8) Bifascicular bundle branch block: Status: Acute Code(s): I45.2 - Bifascicular block Plan: Discharge home with OP PT at [facility].. DME - WW, shower chair Medications at Discharge Home Medications acetaminophen 1,000 mg PO TID PRN PRN #1 tab 01/01/21 aspirin 81 mg PO BIDCM #0 tab 01/01/21 famotidine 20 mg PO DAILY #30 tab 01/01/21 ipratropium bromide 2 spray NASAL BID #1 bottle 01/01/21 lisinopril 2.5 mg PO DAILY #30 tab 01/01/21 meloxicam 7.5 mg PO BID #60 tab 01/01/21 oxycodone 5 - 10 mg PO Q4H PRN PRN 5 Days #30 tab 01/01/21 Hospital Course Operations - (R TANISHA on 12/03/[address] Salazar and left hip total arthroplasty on 12/17/[address] Salazar) Procedures None Summary of Care Provided Minutes Spent on Discharge: 45 Hospital Course: Kristian Rojo is a 50 YO male with a PMH of Apert's S., congenital hip dysplasia, OA, GERD, bifascicular block, hole in Heart and HTN who recently had a R TANISHA on 12/03/20 and a L TANISHA on 12/17/20. He was treated in the [facility] acute rehab unit following both surgeries. Post operatively had acute blood loss anemia with a marcel of 10.1 on 12/18/20. Two days prior to DC on 01/01/21 the HGB had increased to 11.4. during his stay in rehab we monitored the BP 2-3 times a day and the BP was consistently mildly elevated. He was started on Lisinopril 2.5 mg and his BP on the day of DC was 116/71. He has had no adverse reactions. Kristian did very well in therapy. Prior to discharge and he had ambulated 70 feet on a carpeted surface, 40 feet on a ramp and throw rugs and 20 feet on sidewalks using a front wheeled walker at standby assist. He continues to have a forward flexed posture with ambulation. He was able to do sit to stand transfers from various heights at standby assist. He was able to a send/descend 14 stairs with 2 railings at standby assist and could ascend/descend a standard size curb step. He was independent with dressing/toileting tasks with the use of adaptive equipment. He was able to recite his hip precations. Kristian was discharged on 01/01/21 and will be going to Dr. Salazar's office to have the osbaldo removed. He has all the DME he needs and he will be going to [facility] for OP PT. The hospital van will transport him there and back. We tried to get him to [facility] for PT however, he has no consistent transportationsand the hospital van does not go to [facility]. He will also follow up with Dr. Sommer in 1 - 2 weeks. Physical Exam Const alert, oriented x3 and no apparent distress Constitutional Narrative: Good mood, maintaining good eye contact. Talkative. Admits to getting anxious at times but it is only situational. General Appearance: cooperative, comfortable and well kempt HEENT head/scalp atraumatic, moist oral mucous membranes and oropharynx normal Eyes PERRL, conjunctivae normal and no scleral icterus Eyes Narrative: No scleral icterus and no conjunctival injection. Neck no lymphadenopathy, supple, no JVD and no carotid bruits Chest Chest Narrative: Mild pectus excavatum Resp normal respiratory effort, normal air movement, no use of accessory muscles and clear to auscultation bilaterally Resp Narrative: Not tachypneic and no conversational dyspnea. Effort and Inspection: able to speak in complete sentences Cardio regular rate, regular rhythm, S1 normal heart sound, S2 normal heart sound, no murmurs, no rub and no gallops Cardio Narrative: No ectopy. GI normal to inspection, nondistended, normoactive bowel sounds, soft to palpation and non-tender GI Narrative: No guarding with palpation. Extremity no calf tenderness Extremity Narrative: Trace ankle edema BL. KERWIN hose in place. General Extremity: edema right (mild. KERWIN hose in place); Negative for clubbing or cyanosis Skin Skin Narrative: The posterior hip incisions are healing and there is no erythema, purulent DC or increased warmth to touch. General Skin Exam: no breakdown Rashes: no rashes Wound Narrative: The incisions are healing and there is no erythema and no purulent DC. The osbaldo will be removed at Dr. Salazar's office tomorrow from the left hip incision. Neuro oriented x3, CN's II-XII intact bilaterally and no focal motor deficits Motor Exam: strength 5/5 throughout Psych mental status grossly normal, thought process normal, cooperative and affect normal Psych Narrative: Appropriate, making good eye contact. Able to stay on topic and focus. No flight of ideas. Does not appear anxious or depressed. Conversant and relating well to staff. Appearance: appropriate Weight / BMI Weight Weight: 217 lb Body Mass Index (BMI) 31.0 ABG / Lab / Microbiology Data Result Diagrams: 12/30/20 08:10 12/30/20 08:10 D/C Instructions Discharge Diet: - (Low salt) Discharge Activity: May Not Drive, May Shower, Use Walker and - (Adhere to the hip precautions given to you by therapy.) Weight Bearing Status: Full weight bearing Keep extremity elevated above heart level: Legs Call your doctor if your incision/area has: Increased Pain/ Swelling, Increased Redness and Foul Smelling Discharge Call your doctor if you observe: Fever of 101 or Higher, Inability to urinate, Inability to have a bowel movement, Shortness of breath, Swelling in the ankles, Chest pain, Calf discomfort and Uncontrolled pain Cleanse incision/area with: Soap & Water Pending Tests Upon Discharge: none Please Follow Up With: [facility] When: 01/01/21 Meaningful Use Info Meaningful Use Diagnoses (Choose all that apply): None applicable Discharge Plan Admission Admit Date/Time: 12/18/20 11:53 Primary Reason for Your Visit: Debility secondary to left total hip arthroplasty Attending Provider: Camila Worrell Primary Care Provider: Last Sommer Instructions Additional Instructions / Restrictions: 1. Your BP is now controlled with a small dose of Lisinopril which you will take once a day. The side effects of this drug is a daily dry cough and swelling of the lips and tongue that can happen anytime. If you have swelling of the lips and tongue go to the ER. Do not stop the Lisinopril without talking to Dr. Sommer. If you are allergic he can prescribe another drug for you to control the BP. 2. I gave you some Oxycodone to have at home in case you need it. You will be more active at home because you will be cooking and walking more and sometimes the pain at the end of the day is worse. You will not get addicted Kristian, I know you only take it when the pain is bad. 3. Hip precautions: a. No flexing of the hip greater than 90 degrees b. Do not cross your legs c. No twisting 4. DO NOT use alcohol with narcotic pain medication. DO NOT make important decisions while taking narcotic medication. Do not drive while taking narcotic medication. If you have problems while taking your medication (rash, itching, nausea etc.) call your primary care doctor. 5. It has been a pleasure getting to know you Kristian. The staff and I sure appreciate your good humor and cooperation. If you need our services in the future we will welcome you back with open arms. Take care of yourself. If you have any questions after you leave the rehab unit please do not hesitate to call me. Office [phone] Discharge Orders/Prescriptions Prescriptions: New ipratropium bromide 42 mcg (0.06 %) [place],Non-Aerosol 2 spray NASAL BID Qty: 1 RF: 0 lisinopril 2.5 mg Tablet 2.5 mg PO DAILY Qty: 30 RF: 0 Continued meloxicam 7.5 mg tablet 7.5 mg PO BID Qty: 60 RF: 0 famotidine 20 mg tablet 20 mg PO DAILY Qty: 30 RF: 0 aspirin 81 mg tablet,chewable 81 mg PO BIDCM Qty: 0 RF: 0 oxycodone 5 mg Tablet 5 - 10 mg PO Q4H PRN PRN (Reason: Pain Score 4-10) 5 Days Qty: 30 RF: 0 Changed acetaminophen 500 mg tablet 1,000 mg PO TID PRN PRN (Reason: fever or pain) Qty: 1 RF: 0 Discontinued sennosides-docusate sodium [Stool Softener-Stimulant Laxat] 8.6-50 mg tablet 2 tab PO BID Qty: 0 RF: 0 Referrals / Follow Up: Last Sommer MD [Primary Care Provider] - Disposition Disposition (needs filled in before D/C Order can be placed): Home, Self Care Charges/Coding Visit Charges Inpatient E&M: 69916 Disch Hosp
--- NOTE | 2021-01-01 13:17 | NURSING ---
discharge home with mother. Discharged instructions, medications and appointments reviewed with patient. Denies questions or concerns
[2021-01-01 13:20] VITALS: BP 116/71; PULSE 62; RESP 12; TEMP 36.6; O2SAT 93
== END 2021-01-01 12:50 | disposition home or self-care (01) | DRG 469 ==
PROVIDERS: Admitting Provider Internal Medicine; PCP Family Medicine; Visit Provider Internal Medicine
DX: Z47.1 Aftercare following joint replacement surgery (principal); J96.02 Acute respiratory failure with hypercapnia; D62 Acute posthemorrhagic anemia; M16.32 Unilateral osteoarthritis resulting from hip dysplasia, left hip; Q87.0 Congenital malformation syndromes predominantly affecting facial appearance; G47.33 Obstructive sleep apnea (adult) (pediatric); K21.9 Gastro-esophageal reflux disease without esophagitis; Q24.9 Congenital malformation of heart, unspecified; I10 Essential (primary) hypertension; F41.9 Anxiety disorder, unspecified; Q67.6 Pectus excavatum; Q70 Syndactyly; Q70.30 Webbed toes, unspecified foot; T41.295A Adverse effect of other general anesthetics, initial encounter; T42.4X5A Adverse effect of benzodiazepines, initial encounter; R73.9 Hyperglycemia, unspecified; Y92.238 Other place in hospital as the place of occurrence of the external cause; E66.9 Obesity, unspecified; Z68.33 Body mass index [BMI] 33.0-33.9, adult; Z79.82 Long term (current) use of aspirin; Z79.1 Long term (current) use of non-steroidal anti-inflammatories (NSAID); Z79.899 Other long term (current) drug therapy; Z96.643 Presence of artificial hip joint, bilateral; Q65.89 Other specified congenital deformities of hip
CPT/HCPCS: 36415; 36600; 73502; 80048; 82803; 82962; 83036; 85027; 87081; 88305; 88311; 94002; 94003; 94640; 97110; 97116; 97162; 97166; 97530; 97535; 97802; 99251; C1776; J7120; G0463; J2405

== ENCOUNTER → 2021-02-05 09:19 | Outpatient (CLI) | payer MEDICARE, MEDICAID, SELFPAY ==
--- NOTE | 2021-02-05 09:29 | RAD_ITS ---
STUDY: X-RAY CHEST REASON FOR EXAM: Male, 50 years old. LOW OXYGEN LEVELS TECHNIQUE: PA and lateral views of the chest. COMPARISON: None. FINDINGS: The lungs are clear and expanded. There is no demonstrated pleural abnormality. Normal size heart. Normal mediastinum and shi. Normal visualized pulmonary arteries. There is atherosclerotic tortuosity of the aortic arch and descending thoracic aorta. There are degenerative changes of the visualized thoracic spine. Normal visualized ribs, clavicles, and shoulders. There is no demonstrated abnormality of the visualized soft tissue structures of the upper abdomen. RAD/Chest PA and Lateral IMPRESSION: No acute abnormality is seen. Electronically Signed: Cosme Helm MD at 9:51 EST , Service support ,
--- NOTE | 2021-02-05 09:52 | VDLE_ITS ---
Reason For Study: low oxygen levels RIGHT LEFT GSV is normal. GSV is normal. CFV is compressible, spontaneous, phasic, CFV is compressible, spontaneous, phasic, competent and demonstrates normal competent, and demonstrates normal augmentation. augmentation. FV is compressible, spontaneous, phasic, FV is compressible, spontaneous, phasic, competent and demonstrates normal competent and demonstrates normal augmentation. augmentation. POP V is compressible, spontaneous, phasic, POP V is compressible, spontaneous, phasic, competent and demonstrates normal competent and demonstrates normal augmentation. augmentation. T/P Trunk is compressible. T/P Trunk is compressible. PTV is compressible. PTV is compressible. RT PerV is compressible. LT PerV is compressible. Procedure This is a venous duplex using B-mode, color flow and spectral Doppler. Exam performed in department. The exam was diagnostic. A preliminary report was called and/or faxed to Dr. Campoverde's office. VL/Venous Duplex US - Wolf Extrem Interpretation Summary Deep veins of the lower extremities are bilaterally patent and compressible seg mentally. There is no evidence of deep vein thrombosis on either side. Valvular competence appears in tact within the proximal deep venous systems bilaterally. The great saphenous veins appear bila terally patent and compressible segmentally. Ordering Physician: Savage Campoverde Performed By: Jim Flaherty RVT
== END ==
PROVIDERS: PCP Family Medicine; Referring Provider Internal Medicine Pulmonary Disease; Visit Provider Internal Medicine Pulmonary Disease
DX: R09.02 Hypoxemia (principal); R06.02 Shortness of breath
CPT/HCPCS: 71046; 93970

== ENCOUNTER 2021-03-20 14:39 | Outpatient (CLI) | payer MEDICARE, MEDICAID, SELFPAY ==
[2021-03-20 17:01] LABS: Vitamin D,25 Hydroxy 19.4 ng/mL
[2021-03-20 17:02] LABS: Anion Gap 5 (5-15); BUN 14 mg/dL (7-18); BUN/Creat Ratio 14.7 RATIO (10-20); Calcium,Total 9.2 mg/dL (8.5-10.1); Chloride 104 mmol/L (98-107); Cholesterol 214 mg/dL (200); Creatinine, Serum 0.95 mg/dL (0.70-1.30); EST Glomerular Filtration Rate 89 mL/min (>60); Est Glom Filt Rate - Afr Amer 108 mL/min (>60); Glucose 78 mg/dL (74-106); High Density Lipoprotein 57 mg/dL; PSA,Total - Annual Screen 0.88 ng/mL (0.00-4.00); Potassium 3.8 mmol/L (3.5-5.1); Sodium Level 135 mmol/L (136-145); Triglycerides 87 mg/dL; Very Low Density Lipoprotein 17 mg/dL (5-40)
== END 2021-03-20 23:59 | disposition short-term general hospital (02) ==
LOC: LAB 14:41
PROVIDERS: PCP Family Medicine; Visit Provider Family Medicine
DX: Z00.00 Encounter for general adult medical examination without abnormal findings (principal); Z13.21 Encounter for screening for nutritional disorder; I10 Essential (primary) hypertension; Z12.5 Encounter for screening for malignant neoplasm of prostate
CPT/HCPCS: 36415; 80048; 80061; 82306; 84153; 84403; G0103

== ENCOUNTER 2021-05-14 07:59 | Day surgery (SDC) | payer MEDICARE, MEDICAID, SELFPAY ==
[2021-05-14] MEDS: Lactated Ringers 1,000 ML 15 ML IV (08:05)
[2021-05-14 08:26] VITALS: BP 146/104; PULSE 76; RESP 20; TEMP 37.2; O2SAT 96; BMI 29.8
--- NOTE | 2021-05-14 09:00 | COLBX_PTH ---
PATIENT: DESTINI COREY LOC: EN U#:[id number] AGE/SX: 50/M ROOM: RE05/14/[address]: Dr. Yovany Feng MD : 1970 BED: DIS: 05/14/2021 SPEC #: [id number] RECD: 05/14/21 11:40 STATUS: MARY NEW #: [id number] DUNCAN: 05/14/21 09:[address]: Yovany Feng DEPT: SURGICAL PATHOLOGY RECD BY: Agatha Sandhu ENTERED: 05/14/21 11:53 SP TYPE: COLON BX OTHR DR: Dr. Last Sommer MD Tissues: Cecum, NOS Procedures: Surgery Specimen Level IV HEADER OPERATION: Colonoscopy with biopsy ? open access (MAC) PRE-OP DIAGNOSIS: Screening TISSUE SUBMITTED: Cecal polyp biopsy MICROSCOPIC DIAGNOSIS Cecal polyp, biopsy: Tubular adenoma. SJ:flavio 05/15/2021 MICROSCOPIC DESCRIPTION Slides are reviewed. GROSS DESCRIPTION Received in fixative is one container labeled with the patient's name and designated cecal polyp biopsy. The specimen consists of two irregular fragments of light beck soft tissue that in aggregate measure 0.5 x 0.3 x 0.1 cm. The specimen is totally submitted in one cassette. / SJ:flavio 05/14/2021 TC:1 CPT: 92123
--- NOTE | 2021-05-14 09:32 | HP.PCM_ITS ---
HPI - General HPI Narrative DESTINI COREY, is a 50 M who presents for screening colonoscopy through our open access program. He reports that he did have a colonoscopy with Dr. Chino some 15 years ago that was unremarkable and his findings. He does not recall the specific indication for this occasion?other than his primary care was very thorough. He denies any current issues with his bowels. He denies noting any blood or dark tarry stools. He denies any family history of inflammatory bowel disease, diverticulitis or colon cancer. He confirms that his prep was successful and that his output is now a clear yellow color. 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, congenital HTN (hypertension) Marijuana use Non-smoker Physical debility Restless legs Shortness of breath on exertion Walker as ambulation aid Wears glasses Home Medications acetaminophen 1,000 mg PO TID PRN PRN #1 tab 01/01/21 [Rx Last Taken Unknown] lisinopril 2.5 mg PO DAILY #30 tab 01/01/21 [Rx Last Taken 05/14/21] meloxicam 7.5 mg PO DAILY 05/12/21 [History Last Taken Unknown] Allergy/AdvReac Type Severity Reaction Status Date / Time No Known Allergies Allergy Verified 05/14/21 08:26 Surgical History (Updated 05/12/21 @ 09:30 by Gertrude Gonzalez) H/O plastic surgery Hx of foot surgery Hx of hand surgery Status post left hip replacement Status post right hip replacement Social History adopted: No household members: none number of children: 0 Smoking Status: Never smoker alcohol intake: never substance use type: does not use Past Medical/Surgical History Planned Operation Planned Operative Procedure/s: CSCOPE OPEN ACCESS Previous Hospitalizations/Surgeries HX Hospitalizations: No Any Problems With Anesthesia: No You/Your Family Experience Fever (Hyperthermia) With Anes: No Cholinesterase deficiency: No Cardiovascular Hx Hypertension: Yes (CONTROLLED WITH MED) Respiratory Hx Sleep Apnea: No Hx Respiratory Tract Infection/Cold (presently): No Do You Snore Loudly (louder than talking or can be heard): Yes Do You Often Feel Tired/ Fatigued/ Sleepy Dring Daytime?: No Has Anyone Observed You Stop Breathing During Sleep?: No Result (for STOP score): Positive Smoking Status: Never smoker Neurological Does patient have nerve stimulator: No Reproduction : No Musculoskeletal Hx Arthritis: Yes (SEVERE OA B HIPS W/ FLEXION CONTRACTURES) Miscellaneous Recent Exposure to Contagious Disease: No Allergies No Known Allergies Allergy (Verified 05/14/21 08:26) Discharge Is Pt Admitted From a Group Home, or a [facility]: No After D/C, Where Do you Plan to Go: Return Home Vital Signs Vital Signs Vital Signs: 05/14/21 08:26 Temperature 98.9 F Temperature Source Temporal Pulse Rate 76 Respiratory Rate 20 H Respiratory Pattern Normal Blood Pressure 146/104 H Blood Pressure Mean 118 Blood Pressure Source Monitor Blood Pressure Position Semi-Fowlers Blood Pressure Location Right Arm Pulse Ox 96 Oxygen Delivery Method Room Air Weight Weight: 213 lb 13.574 oz Body Mass Index (BMI) 29.8 Physical Exam Const alert, oriented x3 and no apparent distress GI GI Narrative: Moderately overweight, soft, nontender to palpation x4 quadrants Assessment & Plan Assessment/Plan (1) Encounter for screening for malignant neoplasm of colon: PLAN: Is a 50-year-old male who is referred for screening colonoscopy. He is of average colorectal cancer risk. He denies any present issues with his bowels. He confirms that his only blood thinning medications are daily aspirin and meloxicam for joint pains. He also confirms that his prep for today's procedure went well and his output is now clear. Therefore we will plan to proceed for scheduled screening colonoscopy under local [facility]. Surgery Risks - Colonoscopy Risks Include but are not Limited To: Risks include but are not limited to: Bleeding, perforation requiring further surgery, inability to complete colonoscopy requiring barium enema.
--- NOTE | 2021-05-14 10:17 | OP.COLON_ITS ---
Patient Name: Han Rojo Procedure Date: 05/14/2021 9:24 AM Date of : 1970 Age: 50 Procedure: Colonoscopy Indications: Screening for colorectal malignant neoplasm Providers: Yovany Feng MD Medicines: See the Anesthesia note for documentation of the administered medications Patient Profile: Refer to note in patient chart for documentation of history and physical. Last Colonoscopy: more than 10 years ago. Complications: No immediate complications. Estimated blood loss: Minimal. Procedure: Pre-Anesthesia Assessment: - The heart rate, respiratory rate, oxygen saturations, blood pressure, adequacy of pulmonary ventilation, and response to care were monitored throughout the procedure. - The anesthesia plan was to use moderate sedation/analgesia (conscious sedation). After I obtained informed consent, the scope was passed under direct vision. Throughout the procedure, the patient's blood pressure, pulse, and oxygen saturations were monitored continuously. The adult colonoscope was introduced through the anus and advanced to the cecum, identified by appendiceal orifice and ileocecal valve. The colonoscopy was performed without difficulty. The patient tolerated the procedure well. The quality of the bowel preparation was fair. Scope In: 9:41:49 AM Scope Withdrawal Time 0 hours 21 minutes 50 seconds Scope Out: 10:10:43 AM Total Procedure Duration Time 0 hours 28 minutes 54 seconds Findings: A 5 mm, non-bleeding polyp was found in the cecum. The polyp was semi-sessile. Biopsies were taken with a cold forceps for histology. Estimated blood loss was minimal. The exam was otherwise without abnormality on direct and retroflexion views. Impression: - Preparation of the colon was fair. - One 5 mm, non-bleeding polyp in the cecum. Biopsied. - The examination was otherwise normal on direct and retroflexion views. Recommendation: - Discharge patient to home (via wheelchair). - Resume regular diet today. - Continue present medications. - Await pathology results. - Repeat colonoscopy after studies are complete for surveillance based on pathology results. - Telephone my office for pathology results in 1 week. Procedure Code(s): --- Professional --- 84352, Colonoscopy, flexible; with biopsy, single or multiple Diagnosis Code(s): --- Professional --- Z12.11, Encounter for screening for malignant neoplasm of colon D12.0, Benign neoplasm of cecum CPT copyright 2017 [employer]. All rights reserved. The codes documented in this report are preliminary and upon security incident handler review may be revised to meet current compliance requirements. Yovany Feng MD 05/14/2021 10:16:52 AM This report has been signed electronically. Number of Addenda: 0 Note Initiated On: 05/14/2021 9:24 AM
--- NOTE | 2021-05-14 10:18 | OP.CCLET_ITS ---
05/14/2021 Last Sommer MD [address] [place] [address] Re : Colonoscopy procedure for Han Rojo Dear Dr. Sommer This procedure was performed on April. My impressions and recommendations are as follows: Impressions : - Preparation of the colon was fair. - One 5 mm, non-bleeding polyp in the cecum. Biopsied. - The examination was otherwise normal on direct and retroflexion views. Recommendations : - Discharge patient to home (via wheelchair). - Resume regular diet today. - Continue present medications. - Await pathology results. - Repeat colonoscopy after studies are complete for surveillance based on pathology results. - Telephone my office for pathology results in 1 week. My findings are described in the full procedure note, which is enclosed. If I can be of further assistance, please feel free to contact me at Doctor phone number(s): , Work: . Sincerely, Yovany Feng MD 05/14/2021 10:16:52 AM This report has been signed electronically.
[2021-05-14 10:19] VITALS: BP 119/82; BP 146/104; PULSE 74; RESP 16; TEMP 36.4; O2SAT 95
[2021-05-14 10:20] VITALS: BP 121/82; BP 146/104; PULSE 71; RESP 16; O2SAT 96
[2021-05-14 10:25] VITALS: BP 116/83; BP 146/104; PULSE 68; RESP 16; O2SAT 97
[2021-05-14 10:30] VITALS: BP 121/86; BP 146/104; PULSE 67; RESP 16; TEMP 36.4; O2SAT 96
[2021-05-14 10:49] VITALS: BP 146/104
== END 2021-05-14 23:59 | disposition home or self-care (01) ==
LOC: EN 08:00 → AC 08:02
PROVIDERS: PCP Family Medicine; Referring Provider Family Medicine; Visit Provider Surgery
PROC: 0DJD8ZZ Inspection of Lower Intestinal Tract, Via Natural or Artificial Opening Endoscopic (ICD-10-PCS; CPT 45378; principal; 2021-05-14 08:55)
DX: Z12.11 Encounter for screening for malignant neoplasm of colon (principal); D12.0 Benign neoplasm of cecum; K21.9 Gastro-esophageal reflux disease without esophagitis; I10 Essential (primary) hypertension; M19.90 Unspecified osteoarthritis, unspecified site; Q87.0 Congenital malformation syndromes predominantly affecting facial appearance; Z79.1 Long term (current) use of non-steroidal anti-inflammatories (NSAID); Z79.899 Other long term (current) drug therapy; Z96.643 Presence of artificial hip joint, bilateral
CPT/HCPCS: 45380; 87426; 88305; J7120; J2405

== ENCOUNTER 2021-05-21 15:30 | Outpatient (RCR) | payer MEDICARE, MEDICAID, SELFPAY ==
--- NOTE | 2021-01-06 13:26 | HP.PTEVAL_ITS ---
Patient's Visit Information DESTINI COREY is a 50 year old M referred to Physical Therapy by Dr. Last Sommer MD with a diagnosis of Bilateral THR. Date of Evaluation: 01/06/21 Physical Therapist: Julia Linares DPT - Visit Plan Frequency: 3x /Week Plan: Bilateral THR- focus on LE and core strength/stabilization with functional mobility. HEP Given at Rehab: reviewed - Subjective Bilateral THR- Right THR 12/03 Left THR 12/[address] Salazar. He went to [address] [place] [address] or rehab for 4-5 weeks- and then was discharged home 01/01/2021. Lives in a single story apartment- lives alone- no stairs to enter. He is using the walker all time. He was using a walker two months prior but no AD prior to that. Goal is to get back to walking without AD. He uses a shower chair, shoe horn, maintenance equipment operator and a sock aide but is able to fully care for himself. He left side is sore but no pain- no soreness on the right side 2/10 most of the time 0/10. Eases: ice Agg: movement No radiating pain- no N/T. Posterior approach for both. Used osbaldo on both sides and has had no issues with incision. 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 He has groceries delivered but he is able to prepare his own meals. Does not drive. He feels that he is 45% back to normal. He wants to walk better without AD. Sleep: not disturbed- bed-side sleeper with a pillow between the legs. PMHx/Meds: none since leaving the hospital. - Objective Posture: FH, RS- can correct but does not maintain. Gait: deviated- uses FWW- lumbar flexion- decreased bang. Stairs: asc/desc 8 recip with 2 HR- significant pull for propulsion forward. HR/TR: able with UE A. SLS: weight shift but no SLS. Sensation: WFL to gross touch bilateral LE. ROM: Hip Extn: 30 degree contractures in both left and right Flexion: 90 degrees. Flex: HS: severe, Gastroc: severe. Strength: Core: poor, Hip: flexion: Left: 13.7, Right: 18.7 Extn: Left: 25.8, Right: 21.2 Knee: 5/5 Ankle: 5/5 - Balance/Special Test Scores Lower Extremity Functional Score: 21 TUG Test Time Seconds: 21.19 30 Second Chair Rise Test Seconds: 10 WOMAC Total Score: 47 WOMAC Percentatge: 51.0500 - Goals Goal 1:: Patient will be I with HEP and progression Goal Time Frame: 4-6 Weeks Goal 2:: Patient will ambulate >300 feet with a normalized gait pattern and no AD Goal Time Frame: 4-6 Weeks Goal 3:: Patient will report no soreness in the LE Goal Time Frame: 4-6 Weeks Goal 4:: Patient will asc/desc 8 stairs recip with 1 HR Goal Time Frame: 4-6 Weeks - Rehabilitation Potential Physical Therapy Diagnosis: Patient presents with hypomobility- he has decreased ROM, LE and core strength/stabilization, flexibility and muscular endurance leading to abnormal gait and inability to perform ADL's. - Anticipated Interventions Patient/Client Instruction: Educate patient on: Benefits of Fitness Program Therapeutic Exercise to Include: Strength training, Endurance training, Balance training, Coordination, Agility training, Body mechanics, Postural training, Flexibilty training, Gait and locomotor training, Dynamic Lumbar Stabilization, Scapular Strength/Stabilization For the Purpose of:: To improve muscle performance and motor function Functional Training to Include: Functional work training, Gait training TENS: No Cryotherapy (ice pack, ice massage): Yes Thermo therapy (hot pack): Yes Ultrasound (thermal/non thermal): No Thank you for the opportunity to evaluate your patient. For Medicare and Medicare HMO plans, please review the plan of care and approve it. It will need to be FAXED BACK to us at [phone] for Medicare purposes. For Medicare only, by signing this I certify the plan of care. Please let me know if there are questions or concerns regarding this plan of care. Physician Signature: Date:
--- NOTE | 2021-02-11 09:13 | HP.PTREVAL ---
Dr. Last Sommer MD, It has been my pleasure to treat DESTINI COREY over the last 7 visits for Bilateral THR - post. approach. Please see the progress note below for an update on the physical therapy plan of care! Subjective: Coming from reassessment with PT. States he's doing well and has no pain. Objective/Function: Per PT - pt's strength looks real good - work on functional mobility and gait without AD. Very stiff and robotic when amb without his FWW - able to adjust a little (not quite sure what his previous/normal gait technique looked like). Quite fatigued t/o and post session, gualberto without AD. Plan Plan: Bilateral THR- focus on LE and core strength/stabilization with functional mobility. Balance/Gait/Functional tests - Balance/Special Test Scores Lower Extremity Functional Score: 21 TUG Test Time Seconds: 16.54 Tug Test: <20 sec.=mostly independent 30 Second Chair Rise Test Seconds: 10 WOMAC Total Score: 11 WOMAC Percentage: 88.5500 Goals Goal 1:: Patient will be I with HEP and progression Goal Time Frame: 4-6 Weeks Goal Progress: Progressing Goal 2:: Patient will ambulate >300 feet with a normalized gait pattern and no AD Goal Time Frame: 4-6 Weeks Goal Progress: Progressing Goal 3:: Patient will report no soreness in the LE Goal Time Frame: 4-6 Weeks Goal Progress: Progressing Goal 4:: Patient will asc/desc 8 stairs recip with 1 HR Goal Time Frame: 4-6 Weeks Goal Progress: Progressing Anticipated Interventions Patient/Client Instruction: Educate patient on: Benefits of Fitness Program Therapeutic Exercise to Include: Strength training, Endurance training, Balance training, Coordination, Agility training, Body mechanics, Postural training, Flexibilty training, Gait and locomotor training, Dynamic Lumbar Stabilization, Scapular Strength/Stabilization For the Purpose of:: To improve muscle performance and motor function Functional Training to Include: Functional work training, Gait training TENS: No Cryotherapy (ice pack, ice massage): Yes Thermo therapy (hot pack): Yes Ultrasound (thermal/non thermal): No Please do not hesitate to contact me at [phone] by phone or if you have questions or concerns regarding this new plan of care! Sincerely, Julia Linares DPT
--- NOTE | 2021-04-01 13:27 | HP.PTREVAL_ITS ---
Dr. Last Sommer MD, It has been my pleasure to treat DESTINI COREY over the last 14 visits for Bilateral THR - post. approach. Please see the progress note below for an update on the physical therapy plan of care! Subjective: Patient reports that he is doing really well. He has no pain in the hips. Is walking with a walker outside but not indoors. He feels that he is 60% better. He wants to be able to ambulate on uneven ground. He feels that continuation of PT would be helpful. Objective/Function: Posture: fair throughout. Gait: deviated- no AD in clinic- shortened stride length- SOB. Stairs: asc/desc 8 recip with 2 HR. HR/TR: able with UE A. SLS: 3 seconds on each side. Sensation: WFL to gross touch bilater al LE. ROM: Hip Extn: 30 degree contractures in both left and right Flexion: 110 degrees. Flex: HS: mod, Gastroc: mod. Strength: Core: fair, Hip:4+/5 throughout Knee: 5/5 Ankle: 5/5 Plan Plan: 04/01/21: continue with PO- ambulation- indoor and outdoor. Bilateral THR- focus on LE and core strength/stabilization with functional mobility. Balance/Gait/Functional tests - Balance/Special Test Scores Lower Extremity Functional Score: 47 TUG Test Time Seconds: 12.8 Tug Test: <20 sec.=mostly independent 30 Second Chair Rise Test Seconds: 10 WOMAC Total Score: 11 WOMAC Percentage: 88.5500 Goals Goal 1:: Patient will be I with HEP and progression Goal Time Frame: 4-6 Weeks Goal Progress: Progressing Goal 2:: Patient will ambulate >300 feet with a normalized gait pattern and no AD Goal Time Frame: 4-6 Weeks Goal Progress: Progressing Goal 3:: Patient will report no soreness in the LE Goal Time Frame: 4-6 Weeks Goal Progress: Progressing Goal 4:: Patient will asc/desc 8 stairs recip with 1 HR Goal Time Frame: 4-6 Weeks Goal Progress: Progressing Anticipated Interventions Patient/Client Instruction: Educate patient on: Benefits of Fitness Program Therapeutic Exercise to Include: Strength training, Endurance training, Balance training, Coordination, Agility training, Body mechanics, Postural training, Flexibilty training, Gait and locomotor training, Dynamic Lumbar Stabilization, Scapular Strength/Stabilization For the Purpose of:: To improve muscle performance and motor function Functional Training to Include: Functional work training, Gait training TENS: No Cryotherapy (ice pack, ice massage): Yes Thermo therapy (hot pack): Yes Ultrasound (thermal/non thermal): No Please do not hesitate to contact me at [phone] by phone or if you have questions or concerns regarding this new plan of care! Sincerely, JA ShoemakerT
--- NOTE | 2021-05-21 16:21 | HP.PTDCSUM ---
It has been my pleasure to treat DESTINI COREY referred by Dr. Last Sommer MD, with the diagnosis of Bilateral THR - post. approach for a total of 26 visit(s). Discharge Date: Please see the following information for a summary of their discharge status. Subjective: Patient reports that he is moving around great. He is walking in his apartment without an assistive device. He can walk outside on the concrete sidewalk with a friend. Shower for the first time time today without the walker. Patient reports that he is 90% better. His main issues is uneven ground (hills, grass). % Improvement: 90 Objective/Function: Posture: good throughout Gait: deviated- no AD in clinic- shortened stride length. Stairs: asc/desc 8 recip with 1 HR. HR/TR: able with UE A. SLS: 3 seconds on each side. Sensation: WFL to gross touch bilateral LE. ROM: Hip Extn: 30 degree contractures in both left and right SKTCH: WFL Flex: HS: mod, Gastroc: mod. Strength: Core: fair, Hip:4+/5 throughout Knee: 5/5 Ankle: 5/5 Goal 1:: Patient will be I with HEP and progression Goal Progress: Goal Met Goal 2:: Patient will ambulate >300 feet with a normalized gait pattern and no AD Goal Progress: Goal Met Goal 3:: Patient will report no soreness in the LE Goal Progress: Goal Met Goal 4:: Patient will asc/desc 8 stairs recip with 1 HR Goal Progress: Goal Met Plan: 05/21/21: Discharge- continue to indep home exercise program. 04/01/21: continue with POC - ambulation (indoor and outdoor). Bilateral THR- focus on LE and core strength/stabilization with functional mobility. If there are questions or concerns regarding this patient's physical therapy, please feel free to call me at [phone]. Thank you for the referral of this patient. Sincerely, Julia Linares, JAT Balance/Gait/Functional tests - Balance/Special Test Scores Lower Extremity Functional Score: 62 TUG Test Time Seconds: 9.5 Tug Test: <10 sec.=free mobile 30 Second Chair Rise Test Seconds: 10 WOMAC Total Score: 11 WOMAC Percentage: [phone]
== END 2021-05-21 19:00 | disposition home or self-care (01) ==
LOC: PT 15:30
PROVIDERS: PCP Family Medicine; Referring Provider Family Medicine; Visit Provider Family Medicine
DX: Z47.1 Aftercare following joint replacement surgery (principal); Z96.649 Presence of unspecified artificial hip joint
CPT/HCPCS: 97110; 97162; 97164

== ENCOUNTER → 2024-10-29 | Outpatient (CLI) | payer MEDICARE, MEDICAID, SELFPAY ==
[2024-10-29 19:03] LABS: Anion Gap 12 (5-15); BUN 16 mg/dL (4-19); BUN/Creat Ratio 21.2 RATIO (10-20); Calcium,Total 9.7 mg/dL (7.6-11.0); Carbon Dioxide 23.9 mmol/L (21.0-32.0); Chloride 105 mmol/L (98-108); Cholesterol 184 mg/dL (<=200); Glucose 114 mg/dL (70-99); Low Density Lipoprotein Calc. 121 mg/dL; Potassium 3.8 mmol/L (3.3-5.1); Triglycerides 82 mg/dL; Very Low Density Lipoprotein 16 mg/dL (5-40); cholesterol:hdl ratio screen 3.99
== END | disposition home or self-care (01) ==
LOC: MFPLAB 16:14
PROVIDERS: PCP Family Medicine; Visit Provider Family Medicine
DX: Z00.00 Encounter for general adult medical examination without abnormal findings (principal)
CPT/HCPCS: 36415; 80048; 80061